=== PATIENT | male | born 1945 | race Hispanic/Latino ===

== ENCOUNTER 2025-03-27 08:08 | Inpatient (IN) | payer MEDICARE ==
[~2025-03-27] VITALS: Ht 165.1 cm; Wt 46.7 kg
--- NOTE | 2025-03-27 08:17 | NUR ---
GIOVANNI PATRICIA [facility] [phone]
[2025-03-27 08:24] LABS: BASOPHILS # (AUTO) 0.05 K/uL (0.00-0.20); BASOPHILS % (AUTO) 0.7 % (0.0-5.0); EOSINOPHILS # (AUTO) 0.02 K/uL (0.00-0.70); EOSINOPHILS % (AUTO) 0.3 % (0.0-8.0); HEMATOCRIT 33.5 % (42-54); IMMATURE GRANULOCYTE ABSOLUTE 0.04 K/uL (0-1); LYMPHOCYTES % (AUTO) 13.4 % (21.0-51.0); MEAN CORPUSCULAR HEMOGLOBIN 28.8 pg (27.0-33.0); MEAN CORPUSCULAR HGB CONC 31.9 g/dL (32.0-36.0); MEAN CORPUSCULAR VOLUME 90.3 fL (79-99); MONOCYTES # (AUTO) 0.6 K/uL (0.1-1.0); MONOCYTES % (AUTO) 8.1 % (3.0-13.0); NEUTROPHILS # (AUTO) 5.9 K/uL (1.8-7.7); PLATELET COUNT (AUTO) 342 K/uL (130-400); RED BLOOD CELL COUNT(AUTO) 3.71 MIL/uL (4.50-6.20); RED CELL DISTRIBUTION WIDTH 15.7 % (11.0-15.5); WHITE BLOOD COUNT (AUTO) 7.7 K/uL (4.8-10.8)
[2025-03-27 08:46] LABS: MAGNESIUM 1.6 mg/dL (1.80-2.40)
[2025-03-27 08:57] LABS: B-TYPE NATRIURETIC PEPTIDE 343 pg/mL (0-100)
--- NOTE | 2025-03-27 08:57 | HMCIMG ---
Exam Type: PELVIS 1-2VWS Clinical Information: fall Comparison: None Findings: There is osteopenia. The examination is otherwise unremarkable. No fractures or dislocations are seen. No radiopaque foreign bodies are noted. Soft tissues are preserved. IMPRESSION: Osteopenia. No acute pathology.
--- NOTE | 2025-03-27 08:57 | HMCIMG ---
Exam Type: CT HEAD/BRAIN W/O CONTRAST Clinical Information: fall Comparison: None CT Dose Index (CTDI): 57.33 mGy Dose Length Product (DLP): 956.79 total mGy-cm Findings: The examination shows atrophy. There is low attenuation throughout the periventricular white matter locations, consistent with chronic small vessel ischemic changes. No acute intra- or extra-axial fluid collections are seen. There is no evidence of acute or chronic hemorrhage. There is no mass effect or shift of midline structures. There are no areas to suggest acute infarct. The skull windows show no significant abnormalities. IMPRESSION: 1. ATROPHY AND CHRONIC SMALL VESSEL ISCHEMIC CHANGES. This study was performed using dose reduction techniques to include automated exposure control and/or adjustment of the mA and/or kV according to patient size.
--- NOTE | 2025-03-27 08:57 | HMCIMG ---
Exam Type: CT cervical spine without contrast Clinical Information: fall Comparison: None Technique: Spiral axial images were performed from the base of the skull down to the thoracic vertebral bodies. Both sagittal and coronal reconstructions were performed. CT Dose Index (CTDI): 12.85 mGy Dose Length Product (DLP): 282.6 total Findings: There is normal alignment of the vertebral bodies. There are no fractures. No facet hypertrophy. The prevertebral soft tissues are normal. IMPRESSION: NORMAL CERVICAL SPINE CT. This study was performed using dose reduction techniques to include automated exposure control and/or adjustment of the mA and/or kV according to patient size.
[2025-03-27 08:58] LABS: POTASSIUM 2.9 mmol/L (3.5-5.1)
--- NOTE | 2025-03-27 08:59 | HMCIMG ---
Exam Type: CHEST 1VW Clinical Information: fall Comparison: None Findings: The lungs are clear of infiltrates. The heart is normal in size. The bony and soft tissue structures of the chest are unremarkable. Impression: Clear lungs.
--- NOTE | 2025-03-27 09:00 | NUR ---
patiemt noted with feces on his hands and feet, patient was cleaned up by staff. also noted with multiple skin tears to bilateral arms and right scapula, which were cleaned and dressed by nurse.
--- NOTE | 2025-03-27 09:43 | ERN ---
General Chief Complaint: Mechanical Fall Stated Complaint: FALL Time Seen by MD: 08:11 History of Present Illness Initial Comments 79M, hx Dm, HTN, dementia, brought in by EMS for weakness and found down. Patient lives in an [place] [place] [facility]" per EMS. He lives on his own but people check on him daily. This morning he was found down on the ground with an abrasion to his L elbow. The patient reports feeling weak, but does not know what happened. Patient denies pain. Stable VS. Patient is not a reliable historian. He is alert to person only. No obvious focal deficits. Patient does appear unkempt, he has stool and feces on his clothes. Past Medical History Past Medical History: Dementia, Diabetes-Type II, High Cholesterol, Hyper tension, Stroke Past Surgical History: Other, Unknown ROS Dictation CONSTITUTIONAL: Generalized weakness and fatigue HEAD/FACE: No signs of trauma. EENT: No eye pain, no blurred vision, no tearing, no double vision, no ear pain, no ear discharge, no nose pain, no nasal congestion, no throat pain, no throat swelling, no mouth pain. RESPIRATORY: No cough, no orthopnea, no SOB, no stridor, no wheezing. CARDIOVASCULAR: No chest pain, no edema, no palpitations, no syncope. GASTROINTESTINAL/ABDOMINAL: No abdominal pain, no constipation, no diarrhea, no nausea, no vomiting. GENITOURINARY: No abnormal discharge, no dysuria, no frequent urination, no hematuria. No complaints of pain in the genitals. MUSCULOSKELETAL: No back pain, no gout, no joint pain, no joint swelling, no muscle pain, no muscle stiffness, no neck pain. INTEGUMENTARY: No change in color, no change in hair/nails, no dryness, no lesion, no lumps, no rash. NEUROLOGICAL/PSYCH: No anxiety, not depressed, no emotional problem, no headache, no numbness, no pre-existing deficit, no history of seizures, no tremors, no weakness. HEMATOLOGIC/LYMPHATIC: Not anemic, no history of blood clots, no apparent bleeding, no bruising, glands not swollen. All Systems Negative, Except as Noted. Physical Exam Physical Exam Dictation VITAL SIGNS: Reviewed. GENERAL APPEARANCE: Alert, oriented to person only, disheveled HEAD AND FACE: Non-traumatic. EYES: PERRL, pink conjunctivas, eyelid no trauma, anterior chamber clear. EARS: Pinnas intact and no signs of trauma or erythema. Ear canals clear and no discharge. TMs no erythema. NOSE: No discharge, no bleeding. OROPHARYNX: Mouth normal, teeth no caries, tongue pink. Pharynx clear, no erythema. Tonsils no exudates, no abscesses noted. Mucous membrane moist. NECK: Supple, non-tender, no thyromegaly, no masses, no JVD, no bruits. BREAST: Deferred. CHEST: No tenderness, no crepitus, no paradoxical movement, no retractions. LUNGS: Clear, well-ventilated, symmetric, no rales, no wheezing, no rhonchi, no stridor, good breath sounds bilaterally. HEART: Regular rate, regular rhythm, no murmur, no gallops. VASCULAR: No peripheral edema. ABDOMEN: Soft, positive bowel sounds, nondistended, no guarding, nontender, no rebound, no masses no hepatomegaly, no splenomegaly, no Santiago's sign, no hernias. RECTAL: Deferred. GENITAL: Deferred. NEUROLOGICAL: Normal speech, gross motor function intact, gross sensory function intact. MUSCULOSKELETAL: Neck nontender, full range of motion, back nontender, full range of motion. EXTREMITIES: Nontender, full range of motion. SKIN: Color pink, dry, no turgor, no rash, no lacerations, no abrasions, no contusions. LYMPHATICS: Deferred. Results Laboratory and Microbiology Lab and Micro Result Laboratory Tests Test 03/27/25 08:16 White Blood Count 7.7 K/uL (4.8-10.8) Red Blood Count 3.71 MIL/uL (4.50-6.20) L Hemoglobin 10.7 g/dL (14.0-18.0) L Hematocrit 33.5 % (42-54) L Mean Corpuscular Volume 90.3 fL (79-99) Mean Corpuscular Hemoglobin 28.8 pg (27.0-33.0) Mean Corpuscular Hemoglobin Concent 31.9 g/dL (32.0-36.0) L Red Cell Distribution Width 15.7 % (11.0-15.5) H Platelet Count 342 K/uL (130-400) Mean Platelet Volume 9.2 fL (7.5-10.5) Immature Granulocyte % (Auto) 0.5 % (0-1) Neutrophils (%) (Auto) 77.0 % (40.0-77.0) Lymphocytes (%) (Auto) 13.4 % (21.0-51.0) L Monocytes (%) (Auto) 8.1 % (3.0-13.0) Eosinophils (%) (Auto) 0.3 % (0.0-8.0) Basophils (%) (Auto) 0.7 % (0.0-5.0) Neutrophils # (Auto) 5.9 K/uL (1.8-7.7) Lymphocytes # (Auto) 1.0 K/uL (1.0-4.8) Monocytes # (Auto) 0.6 K/uL (0.1-1.0) Eosinophils # (Auto) 0.02 K/uL (0.00-0.70) Basophils # (Auto) 0.05 K/uL (0.00-0.20) Absolute Immature Granulocyte (auto 0.04 K/uL (0-1) Nucleated Red Blood Cells 0.0 % (0.0-0.19) Sodium Level 140 mmol/L (136-145) Potassium Level 2.9 mmol/L (3.5-5.1) *L Chloride Level 103 mmol/L (101-111) Carbon Dioxide Level 24 mmol/L (21-32) Blood Urea Nitrogen 29 mg/dL (7-18) H Creatinine 1.0 mg/dL (0.5-1.3) Glomerular Filtration Rate Calc 78 mL/min (>90) Random Glucose 87 mg/dL (70-105) Total Calcium 8.8 mg/dL (8.5-10.1) Magnesium Level 1.60 mg/dL (1.80-2.40) L Total Creatine Kinase 201 U/L (21-232) Troponin I High Sensitivity 17.4 ng/L (4-75) B-Type Natriuretic Peptide 343 pg/mL (0-100) H MDM CC: generalized weakness, found down. Historian: EMS provided much of the history. Patient is an unreliable historian. Due to dementia Limitations by social determinants of health none Comorbidities: Advanced age, dementia diabetes hypertension Differential diagnosis: Fall, injury, head injury metabolic abnormality, infection dehydration Vital signs: Mild hypertension 162/83 otherwise vital signs stable. Labs (independently interpreted by me): normocytic anemia, no leukocytosis, potassium 2.9, elevated BUN:Cr ratio, magnesium 1.6, troponin normal, CK normal. EKG (independently interpreted by me): NSR, RBBB morphology, rate 67, early RWP, no STEMI. CXR (independently interpreted by me): no cardiomegally, pleural effusion Pelvis XR (independently interpreted by me): no fractures CT head w/o contrast (independently interpreted by me): no acute brain bleed or injuries, chronic changes CT cervical spine w/o contrast (independently interpretd by me): no acute fractures. Symptoms most consistent with generalized weakness, dehydration. Electrolyte changes. Treatment in ED: 1L LR, potassium and magnesium replacement Plan: admit for hydration, electrolyte correction. Consultation: hospitalist for admission ED Course Orders Procedure Category Date Status Time Cardiac Panel LAB 03/27/25 Complete 08:12 Cbc With Differential LAB 03/27/25 Complete 08:12 Basic Metabolic Panel LAB 03/27/25 Complete 08:12 B-Type Natriuretic LAB 03/27/25 Complete Peptide 08:12 Magnesium LAB 03/27/25 Complete 08:12 Urinalysis Profile LAB 03/27/25 Logged 08:12 Lactated Ringers PHA 03/27/25 Pending 1000ml (Lactated 08:30 Chest 1vw RAD 03/27/25 Resulted 08:12 Pelvis 1-2vws RAD 03/27/25 Resulted 08:12 Ct Head/Brain W/O CT 03/27/25 Resulted Contrast 08:12 Ct Cervical Spine W/O CT 03/27/25 Resulted Contrast 08:12 12 Lead Ekg Tracing- EKG 03/27/25 Logged Technical 09:33 Magnesium 2gm Premix PHA 03/27/25 Logged 50ml (Magnesium 2gm 10:00 Initiate Po [place] 03/27/25 In Process Hypokalemia Protoc 09:37 Potassium Chloride PHA 03/27/25 Logged 20meq/100ml ([place] 10:00 Potassium Chl 10% PHA 03/27/25 Logged Elixir 20meq (Kcl 10% 10:00 Potassium Chloride PHA 03/27/25 Logged 20meq Er (K-Dur/Klor- 10:00 Notify Physician If CPOE 03/27/25 Transmitted There Is 09:37 Notify Md On The Next CPOE 03/27/25 Transmitted 09:37 Notify Md On The CPOE 03/27/25 Transmitted Next(Cont.) 09:37 Current Medications Medications (Trade) Dose Ordered Sig/Michelle Route PRN Reason Start Time Stop Time Status Last Admin Dose Admin Lactated Ringer's 1,000 ml @ 0 mls/hr ONCE ONCE IV 03/27/25 08:30 03/27/25 08:31 UNV Magnesium Sulfate 50 ml @ 0 mls/hr PROTOCOL PRN IV OTHER [SEE ORDER COMMENTS] 03/27/25 10:00 04/26/25 09:59 UNV Potassium Chloride 100 ml @ 100 mls/hr AD PRN IV POTASSIUM PROTOCOL 03/27/25 10:00 04/26/25 09:59 UNV Potassium Chloride (K-Dur/Klor-Con 20meq) 20 meq AD PRN PO POTASSIUM PROTOCOL 03/27/25 10:00 04/26/25 09:59 UNV Potassium Chloride (KCl 10% Elixir 20meq/15ml) 20 meq AD PRN PO POTASSIUM PROTOCOL 03/27/25 10:00 04/26/25 09:59 UNV Vital Signs Date Time Temp Pulse Resp B/P (MAP) Pulse Ox O2 Delivery O2 Flow Rate FiO2 03/27/25 08:26 97.9 75 18 152/83 99 Room Air* 0 21 03/27/25 08:12 98.4 83 14 152/83 97 Room Air 0 DX & DISP Disposition: Inpatient (Hospitalist group) Departure Impression: Primary Impression: Dehydration Additional Impressions: Fatigue, Hypokalemia, Hypomagnesemia, Fall at home Condition: Stable Referrals: SELF,REFERRAL (PCP) KELLEY FAJARDO DO Mar 27, 2025 09:43
--- NOTE | 2025-03-27 10:00 | NUR ---
spoke to patient sister, states she found paitent on floor this am when she took him breakfast, which she states she does every morning. states patient is normally ambulatory without assistance, but today he was unsteady when she assisted him off the floor.
--- NOTE | 2025-03-27 10:31 | EKG ---
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
[2025-03-27] MEDS: PoTASSium chl 10% ELIXIR 20MEQ 20 MEQ/15 ML UDCUP PO PRN (10:55)
[2025-03-27] MEDS: LACTATED RINGERS 1000ML 1,000 ML IV ONE (10:56)
[2025-03-27] MEDS ORDERED: MAGNESIUM 2GM PREMIX 50ML 50 ML IV PRN ×2 (11:00)
[2025-03-27] MEDS ORDERED: ketOROlac 15MG/ML VIAL (15MG/ML) IV PRN (11:00)
[2025-03-27] MEDS ORDERED: PoTASSium chloRIDE 20MEQ/100ML 100 ML IV PRN ×2 (11:00)
[2025-03-27] MEDS ORDERED: LACTULOSE 20 GM/30 ML UDCUP PO PRN (11:00)
[2025-03-27] MEDS ORDERED: GLUCAGON 1MG KIT 1 MG ML IM PRN (11:00)
[2025-03-27] MEDS ORDERED: PoTASSium chloRIDE 20MEQ ER 20 MEQ ERTAB PO PRN ×2 (11:00)
[2025-03-27] MEDS ORDERED: DiphenhydrAMINE HCL 50 MG/ML VIAL IV PRN (11:00)
[2025-03-27] MEDS ORDERED: NITROGLYCERIN 0.4 MG SL TAB SL PRN (11:00)
[2025-03-27] MEDS ORDERED: morPHINE 2 MG SYG IVP PRN (11:00)
[2025-03-27] MEDS ORDERED: guaiFENesin-DM 200/20MG 10ML PO PRN (11:00)
[2025-03-27] MEDS ORDERED: FAMOTIDINE 20MG VIAL IV PRN (11:00)
[2025-03-27] MEDS ORDERED: acetaMINOPHEN 325 MG TAB PO PRN ×3 (11:00)
[2025-03-27] MEDS ORDERED: MAG/ALUM/SIMETH 30 ML UDCUP PO PRN (11:00)
[2025-03-27] MEDS ORDERED: PoTASSium chl 10% ELIXIR 20MEQ 20 MEQ/15 ML UDCUP PO PRN (11:00)
[2025-03-27] MEDS: MAGNESIUM 2GM PREMIX 50ML 50 ML IV SCH (11:11)
[2025-03-27 11:15] LABS: APPEARANCE,URINE CLEAR (CLEAR); BILIRUBIN,URINE NEGATIVE (NEGATIVE); COLOR,URINE LIGHT-YELLOW (YELLOW); GLUCOSE, URINE (UA) NEGATIVE (NEGATIVE); KETONES,URINE NEGATIVE (NEGATIVE); LEUKOCYTE ESTERASE ,URINE NEGATIVE Leu/uL (NEGATIVE); MUCUS,URINE RARE LPF (None Seen); NITRATE,URINE NEGATIVE (NEGATIVE); OCCULT BLOOD,URINE NEGATIVE (NEGATIVE); PROTEIN,URINE NEGATIVE (NEGATIVE); RBC,URINE 0-1 /HPF (0-1); UROBILINOGEN,URINE 0.2 mg/dL (0.2-1.0); WBC,URINE 0-1 /HPF (0-1)
--- NOTE | 2025-03-27 11:25 | HP ---
[facility] Date of Service: Mar 27, 2025 Time of Service: 10:54 PCP: self refferal Admitting: Dr Marcum, Allergies: No Allergy Information Available, No Known Drug Allergies HISTORY OF PRESENT ILLNESS: [ Patient is 79 years old male with a past medical history of diabetes, hypertension, dementia, hyperlipidemia, stroke, anxiety, multiple skin tears, who came to emergency department for generalized body weakness. Since patient has significant dementia he was unable to give me any history of present illness so as per EMS "Patient lives in an "assisted [facility]". He lives on his own but people check on him daily. This morning he was found down on the ground with an abrasion to his L elbow. The patient reports feeling weak, but does not know what happened. Patient denies pain. Patient is not a reliable historian. He is alert to person only. No obvious focal deficits. Patient does appear unkempt, he has stool and feces on his clothes. Blind most recent vital signs temperature 97.5 pulse 86 respiration 20 blood pressure 154/86 patient is on room air satting 99%. Sodium 140 potassium 2.9 CO2 24 BUN 29 creatinine 1.0 GFR 78 magnesium 1.6 CK 201 troponin negative BNP 343 WBC 7.7 hemoglobin 10.7 hematocrit 33.[address] platelets [address] negative. Chest x-ray negative. Head CT negative. Pelvic x- ray showed osteopenia. 2D echo is pending. As per RN who was able to talk to the patient's daughter she would like to try case management to send patient to shelter. Case management was consulted. PT ordered Patient will be admitted under hospitalist care for further evaluation/recommendation REVIEW OF SYSTEMS CONSTITUTIONAL: Denies fevers, chills, or night sweats. No unintentional weight loss reported. NEUROLOGICAL: Denies headache, amaurosis fugax, motor weakness, sensory deficit, vertigo/spinning sensation, gait abnormalities, or tremors. ENT: No hearing loss, otalgia, otorrhea, rhinitis, rhinorrhea, hoarseness, or sore throat. CARDIOVASCULAR: Denies any exertional angina, dyspnea on exertion, orthopnea, paroxysmal nocturnal dyspnea, palpitations, life-threatening arrhythmias, claudication. PULMONARY: Denies any shortness of breath, cough, phlegm/sputum, hemoptysis, pleuritic chest pain. SLEEP: Denies morning headaches, daytime somnolence or napping. Denies difficulty falling asleep, staying asleep, waking from sleep. Denies knowledge of snoring. GASTROINTESTINAL: Denies any type of dysphagia to either liquids or solids. Denies nausea, vomiting, pyrosis, early satiety, abdominal pain, diarrhea, constipation, or changes in stool consistency or caliber. Denies coffee-ground emesis, hematemesis, hematochezia, or melanotic stools. GENITOURINARY: Denies frequency, urgency, nocturia, hematuria or incontinence (Storage/Irritative symptoms.) Low urinary stream, straining to void, urinary intermittency or hesitancy, splitting of the voiding stream, terminal dribbling. ENDOCRINOLOGIC: Denies polyuria, polydipsia, polyphagia or heat/cold intolerances. HEMATOLOGIC: Denies thrombophilia/previous clots, or coagulopathy/bleeding disorders. ONCOLOGIC: Denies personal history of malignancy. DERMATOLOGIC: Denies rashes or pruritus. Multiple skin tears PSYCHIATRIC: Denies any suicidal or homicidal ideation. Denies hallucinations. PAST MEDICAL HISTORY: [ Diabetes, dementia, hypertension, hyperlipidemia, stroke, anxiety] PAST SURGICAL HISTORY: [ Unknown] PAST SOCIAL HISTORY: [ Unknown ] FAMILY HISTORY: [ Patient lives alone at longterm. Patient independent as per daughter ] Coded Allergies: No Known Drug Allergies (Unverified Allergy, Unknown, 03/27/25) PHYSICAL EXAM GENERAL APPEARANCE: The patient is awake, alert, and oriented, in no acute cardiopulmonary distress. NEUROLOGICAL: Cranial nerves II-XII grossly intact. Motor is 5/5 in bilateral upper and lower extremities proximal to distal. No sensory deficits. HEENT: Face is symmetric. Pupils are equal and reactive. Extraocular movements are intact. NECK: Supple. No JVD. No thyromegaly. No submental, submandibular, pre- /postauricular, occipital or supraclavicular lymphadenopathy. CHEST: Normal chest expansion. No Telemetry. LUNGS: Absence of any rales, rhonchi or any wheezing. CARDIOVASCULAR: Regular. S1 and S2 normal. No appreciable rubs, murmurs or gallops. ABDOMEN: Soft, nontender, and nondistended. There is no rebound, voluntary guarding, or rigidity. : Deferred. No [place]. EXTREMITIES: Non-edematous and not cyanotic. No clubbing. Good capillary refill. SKIN: Multiple skin tears Vital Sign (Last 24 Hours) 03/27/25 03/27/25 08:26 09:25 Temp 97.5 Pulse 86 Resp 20 B/P (MAP) 154/86 Pulse Ox 99 O2 Delivery Room Air* O2 Flow Rate 0 FiO2 21 LABS: Laboratory: Test 03/27/25 08:16 Range/Units White Blood Count 7.7 4.8-10.8 K/uL Red Blood Count 3.71 L 4.50-6.20 MIL/uL Hemoglobin 10.7 L 14.0-18.0 g/dL Hematocrit 33.5 L 42-54 % Mean Corpuscular Volume 90.3 79-99 fL Mean Corpuscular Hemoglobin 28.8 27.0-33.0 pg Mean Corpuscular Hemoglobin Concent 31.9 L 32.0-36.0 g/dL Red Cell Distribution Width 15.7 H 11.0-15.5 % Platelet Count 342 130-400 K/uL Mean Platelet Volume 9.2 7.5-10.5 fL Immature Granulocyte % (Auto) 0.5 0-1 % Neutrophils (%) (Auto) 77.0 40.0-77.0 % Lymphocytes (%) (Auto) 13.4 L 21.0-51.0 % Monocytes (%) (Auto) 8.1 3.0-13.0 % Eosinophils (%) (Auto) 0.3 0.0-8.0 % Basophils (%) (Auto) 0.7 0.0-5.0 % Neutrophils # (Auto) 5.9 1.8-7.7 K/uL Lymphocytes # (Auto) 1.0 1.0-4.8 K/uL Monocytes # (Auto) 0.6 0.1-1.0 K/uL Eosinophils # (Auto) 0.02 0.00-0.70 K/uL Basophils # (Auto) 0.05 0.00-0.20 K/uL Absolute Immature Granulocyte (auto 0.04 0-1 K/uL Nucleated Red Blood Cells 0.0 0.0-0.19 % Sodium Level 140 136-145 mmol/L Potassium Level 2.9 *L 3.5-5.1 mmol/L Chloride Level 103 101-111 mmol/L Carbon Dioxide Level 24 21-32 mmol/L Blood Urea Nitrogen 29 H 7-18 mg/dL Creatinine 1.0 0.5-1.3 mg/dL Glomerular Filtration Rate Calc 78 >90 mL/min Random Glucose 87 70-105 mg/dL Total Calcium 8.8 8.5-10.1 mg/dL Magnesium Level 1.60 L 1.80-2.40 mg/dL Total Creatine Kinase 201 21-232 U/L Troponin I High Sensitivity 17.4 4-75 ng/L B-Type Natriuretic Peptide 343 H 0-100 pg/mL Current Medications Medications (Trade) Dose Ordered Sig/Michelle Route PRN Reason Start Time Stop Time Status Last Admin Dose Admin Dextrose (D50w) 50 ml AD PRN IV HYPOGLYCEMIA PROTOCOL 03/27/25 11:00 04/26/25 10:59 Glucagon (Glucagon 1mg Kit) 1 mg AD PRN IM HYPOGLYCEMIA PROTOCOL 03/27/25 11:00 04/26/25 10:59 Insulin Human Regular (humuLIN R 100 UNIT/ML 3ML) INSULIN SLIDING SCAL... ACHS SQ 03/27/25 11:30 04/26/25 11:29 Magnesium Sulfate 50 ml @ 0 mls/hr PROTOCOL PRN IV OTHER [SEE ORDER COMMENTS] 03/27/25 11:00 03/27/25 10:48 DC Magnesium Sulfate 50 ml @ 0 mls/hr PROTOCOL PRN IV OTHER [SEE ORDER COMMENTS] 03/27/25 11:00 04/26/25 10:59 Potassium Chloride 100 ml @ 100 mls/hr AD PRN IV POTASSIUM PROTOCOL 03/27/25 11:00 03/27/25 10:48 DC Potassium Chloride 100 ml @ 100 mls/hr AD PRN IV POTASSIUM PROTOCOL 03/27/25 11:00 04/26/25 10:59 Potassium Chloride (K-Dur/Klor-Con 20meq) 20 meq AD PRN PO POTASSIUM PROTOCOL 03/27/25 11:00 03/27/25 10:48 DC Potassium Chloride (K-Dur/Klor-Con 20meq) 20 meq AD PRN PO POTASSIUM PROTOCOL 03/27/25 11:00 04/26/25 10:59 Potassium Chloride (KCl 10% Elixir 20meq/15ml) 20 meq AD PRN PO POTASSIUM PROTOCOL 03/27/25 11:00 03/27/25 10:48 DC Potassium Chloride (KCl 10% Elixir 20meq/15ml) 20 meq AD PRN PO POTASSIUM PROTOCOL 03/27/25 11:00 04/26/25 10:59 DIAGNOSTICS / RADIOLOGY: [ ] ASSESSMENT: [ S/p fall POA Acute dehydration POA Generalized body weakness POA Electrolyte imbalance hypokalemia hypomagnesemia POA Multifactorial anemia POA Osteopenia per pelvis x-ray 03/27/2025 Acute congestive heart failure BNP 343 POA Uncontrolled hypertension POA Dementia POA Hyperlipidemia POA Uncontrolled diabetes mellitus type 2 with hypoglycemia POA Anxiety POA Multiple skin tears POA History of stroke] PLAN: [ Admit to: Medical-surgical floor with tele Consults: None Antibiotics: None Tests: 2D echo NEURO: CT head brain negative Minimize central acting medications as possible. Fall Precautions. Well lighted room through the day and minimize interruptions through the night to prevent acute delirium. PULMONARY: Chest x-ray negative Supplemental 02 as needed BiPAP as necessary, for respiratory distress Titrate Fio2 to keep Spo2 > or = 90% DuoNebs and CPT as needed IS hourly while awake for pulmonary hygiene Out of bed to chair as tolerated VAP Bundle Maintain aspiration precautions at all times CARDIOVASCULAR: 2D echo pending Follow hemodynamics. Vital signs per facility protocol GI & NUTRITION: Continue nutritional support Aspirations precautions Prokinetic agents and laxatives as needed KIDNEYS & ELECTROLYTES: Strict monitoring of intake and output Daily weights Avoid nephrotoxic agents Monitor electrolytes and replace as needed Goal urine output of 30mL/hr or 0.5mL/kg/hr Medications to be dosed according to renal function. Avoid contrast if possible ENDOCRINE: Maintain blood glucose between 100-180 at all times. Insulin sliding scale for blood glucose management Hypoglycemia and hyperglycemia protocol in place INFECTIOUS DISEASE: Trend temperature, WBC and procalcitonin level Follow cultures, deescalate antibiotics as soon as possible. Panculture if new onset fever HEMATOLOGY & COAGULATION: Monitor H&H. Keep Hgb > 7 Transfuse 1 unit of PRBC for Hgb < 7 Transfuse 1 pack of platelets of platelets < 20, 000 Watch for any signs and symptoms of bleeding SKIN: Pelvis x-ray showed osteopenia Cervical spine CT negative Pressure ulcer prevention per facility protocol Specialty mattress as needed Treatment plan discussed with patient and family at the bedside Medications to be reconciled once obtained by patient and/or family and available to be reconciled in computer p.r.n. medication for pain nausea and vomiting Questions were answered We will continue to monitor the patient closely Systems Programmer Analyst for disposition Rehab: PT/OT GI: PPI DVT: SCD's Code Status: Full Resuscitation Disposition: TBD Prognosis: Guarded ] ADVANCED CARE PLANNING 1. Which of the following were discussed? Hospice Care - Yes / No Therapeutic options - Yes / No Advance Directives - Yes / No Other discussions - 2. Discussed with who? Patient 3. Voluntary nature of this service was explained to the patient? Yes / No 4. Amount of time spent - ___ more than 35 minutes ____ 5. Reviewed by Physician? (if this service was performed by NPP) Yes / No ATTESTATION BY PHYSICIAN I have seen and examined the patient. I reviewed the documentation, medical decision making, and treatment plan as noted by the mid-level provider above. I agree with the findings and plan of care. DILCIA Encarnacion MD SILK WINDING MACHINE OPERATOR Mar 27, 2025 11:25
[2025-03-27] MEDS: INSULIN humuLIN R 100 UNIT/ML 3ML SQ SCH (11:30)
[2025-03-27 11:35] VITALS: O2SAT 98
--- NOTE | 2025-03-27 11:35 | NUR ---
PT ARRIVED TO UNIT. NO FAMILY AT BEDSIDE. PT HAS HISTORY OF DEMENTIA, HX OF FALLS. PT UNABLE TO ANSWER QUESTIONS ORIENTED TO SELF. NO BELONGINGS BROUGHT TO HOSPITAL. PT HAS MULTIPLE SKIN TEARS ON UPPER EXTREMITIES. AND SHOULDER BLADES. PT HAS HEMATOMA TO FOREHEAD. DENIES ANY PAIN AT THE MOMENT. PT TRIES TO GET OUT OF BED UNASSISTED. UNABLE TO COMPREHEND USE CALL LIGHT. BED POSITION TO LOWEST POSITION. CALL LIGHT WITH IN REACH. DOOR REMAINS OPEN.
[2025-03-27 11:40] VITALS: BP 157/90; PULSE 67; RESP 16; TEMP 97.5
[2025-03-27 11:59] LABS: COVID19 (SARS ANTIGEN RAPID) PRESUMPTIVE NEGATIVE (NEGATIVE); INFLUENZA TYPE A Negative For Type A (NEGATIVE); INFLUENZA TYPE B Negative For Type B (NEGATIVE)
[2025-03-27] MEDS: PoTASSium chloRIDE 20MEQ ER 20 MEQ ERTAB PO ONE ×3 (13:05→20:45)
[2025-03-27] MEDS: 0.9%NACL 1000ML 1,000 ML IV SCH (13:08)
[2025-03-27 16:00] VITALS: BP 152/88; PULSE 65; RESP 18; TEMP 97.6
[2025-03-27 16:45] VITALS: BP 134/82; PULSE 78; RESP 18; TEMP 97.6
[2025-03-27 20:05] VITALS: BP 152/88; PULSE 68; RESP 20; TEMP 98
[2025-03-27] MEDS: FAMOTIDINE 20MG VIAL IV SCH (20:45)
[2025-03-27] MEDS: HEParin 5,000 UNIT VIAL SQ SCH (20:46)
[2025-03-28] VITALS (9 sets, daily range): BP systolic 125–169; BP diastolic 65–89; PULSE 52–71; RESP 16–20; TEMP 97.9–98.2; O2SAT 100
[2025-03-28 05:52] LABS: BASOPHILS # (AUTO) 0.04 K/uL (0.00-0.20); BASOPHILS % (AUTO) 0.7 % (0.0-5.0); EOSINOPHILS # (AUTO) 0.07 K/uL (0.00-0.70); EOSINOPHILS % (AUTO) 1.2 % (0.0-8.0); HEMATOCRIT 35.1 % (42-54); IMMATURE GRANULOCYTE ABSOLUTE 0.02 K/uL (0-1); LYMPHOCYTES % (AUTO) 16.7 % (21.0-51.0); MEAN CORPUSCULAR HEMOGLOBIN 28.9 pg (27.0-33.0); MEAN CORPUSCULAR HGB CONC 31.6 g/dL (32.0-36.0); MEAN CORPUSCULAR VOLUME 91.4 fL (79-99); MONOCYTES # (AUTO) 0.5 K/uL (0.1-1.0); MONOCYTES % (AUTO) 8.2 % (3.0-13.0); NEUTROPHILS # (AUTO) 4.2 K/uL (1.8-7.7); NEUTROPHILS % (AUTO) 72.9 % (40.0-77.0); PLATELET COUNT (AUTO) 332 K/uL (130-400); RED BLOOD CELL COUNT(AUTO) 3.84 MIL/uL (4.50-6.20); RED CELL DISTRIBUTION WIDTH 15.7 % (11.0-15.5); WHITE BLOOD COUNT (AUTO) 5.8 K/uL (4.8-10.8)
[2025-03-28 06:09] LABS: INR 1.05 (0.85-1.15); PROTHROMBIN TIME 11.1 SEC (9.6-11.6)
[2025-03-28 06:11] LABS: ALANINE AMINOTRANSFERASE 42 U/L (12-78); ALBUMIN 2.8 g/dL (3.5-5.0); AMMONIA < 10 umol/L (11-32); AMYLASE 26 U/L (25-115); ASPARTATE AMINOTRANSFERASE 54 U/L (10-37); BILIRUBIN,DIRECT 0.1 mg/dL (0.0-0.3); BILIRUBIN,TOTAL 0.5 mg/dL (0.2-1.0); CARBON DIOXIDE 29 mmol/L (21-32); CHLORIDE 104 mmol/L (101-111); CREATINE KINASE, TOTAL 177 U/L (21-232); CREATININE 0.7 mg/dL (0.5-1.3); GLOMERULAR FILTR. RATE CALC 95 mL/min (>90); GLUCOSE,RANDOM 89 mg/dL (70-105); PARTIAL THROMBOPLASTIN TIME 29.5 SEC (26.3-35.5); POTASSIUM 3.7 mmol/L (3.5-5.1); SODIUM SERUM 140 mmol/L (136-145); TOTAL PROTEIN, SERUM 6.2 g/dL (6.0-8.3); UREA NITROGEN, BLOOD 17 mg/dL (7-18)
[2025-03-28 06:13] LABS: HEMOGLOBIN A1C 5.4 % (4.0-6.0)
--- NOTE | 2025-03-28 07:31 | PN ---
[facility] PROGRESS NOTE Date of Service: Mar 28, 2025 Time of Service: 07:31 SUBJECTIVE: [79-year-old male admitted status post fall at home. Patient was seen and evaluated in room 320 with sitter for supervision. The patient was very sleepy during my rounds. He looks unkept. Patient unable to answer any questions due to hypersomnolent. Chart reviewed. We will await for blood cultures. Physical therapy to eval and treat and case management for placement. Labs reviewed. ] REVIEW OF SYSTEMS CONSTITUTIONAL: Denies fevers, chills, or night sweats. No unintentional weight loss reported. NEUROLOGICAL: Denies headache, amaurosis fugax, motor weakness, sensory deficit, vertigo/spinning sensation, gait abnormalities, or tremors. ENT: No hearing loss, otalgia, otorrhea, rhinitis, rhinorrhea, hoarseness, or sore throat. CARDIOVASCULAR: Denies any exertional angina, dyspnea on exertion, orthopnea, paroxysmal nocturnal dyspnea, palpitations, life-threatening arrhythmias, claudication. PULMONARY: Denies any shortness of breath, cough, phlegm/sputum, hemoptysis, pleuritic chest pain. SLEEP: Denies morning headaches, daytime somnolence or napping. Denies difficulty falling asleep, staying asleep, waking from sleep. Denies knowledge of snoring. GASTROINTESTINAL: Denies any type of dysphagia to either liquids or solids. Denies nausea, vomiting, pyrosis, early satiety, abdominal pain, diarrhea, constipation, or changes in stool consistency or caliber. Denies coffee-ground emesis, hematemesis, hematochezia, or melanotic stools. GENITOURINARY: Denies frequency, urgency, nocturia, hematuria or incontinence (Storage/Irritative symptoms.) Low urinary stream, straining to void, urinary intermittency or hesitancy, splitting of the voiding stream, terminal dribbling. ENDOCRINOLOGIC: Denies polyuria, polydipsia, polyphagia or heat/cold intolerances. HEMATOLOGIC: Denies thrombophilia/previous clots, or coagulopathy/bleeding disorders. ONCOLOGIC: Denies personal history of malignancy. DERMATOLOGIC: Denies rashes or pruritus. Multiple skin tears PSYCHIATRIC: Denies any suicidal or homicidal ideation. Denies hallucinations. PHYSICAL EXAM GENERAL APPEARANCE: The patient is awake, alert, and oriented, in no acute cardiopulmonary distress. NEUROLOGICAL: Cranial nerves II-XII grossly intact. Motor is 5/5 in bilateral upper and lower extremities proximal to distal. No sensory deficits. HEENT: Face is symmetric. Pupils are equal and reactive. Extraocular movements are intact. NECK: Supple. No JVD. No thyromegaly. No submental, submandibular, pre- /postauricular, occipital or supraclavicular lymphadenopathy. CHEST: Normal chest expansion. No Telemetry. LUNGS: Absence of any rales, rhonchi or any wheezing. CARDIOVASCULAR: Regular. S1 and S2 normal. No appreciable rubs, murmurs or gallops. ABDOMEN: Soft, nontender, and nondistended. There is no rebound, voluntary guarding, or rigidity. : Deferred. No [place]. EXTREMITIES: Non-edematous and not cyanotic. No clubbing. Good capillary refill. SKIN: Multiple skin tears Vital Signs (last 8hr) Date Time Temp Pulse Resp B/P (MAP) Pulse Ox O2 Delivery O2 Flow Rate FiO2 03/28/25 04:02 97.9 69 19 150/65 97 Room Air 03/28/25 00:01 98.1 71 18 147/89 96 Room Air LABS: Laboratory: Test 03/28/25 05:32 03/28/25 05:18 03/27/25 11:15 03/27/25 11:00 Range/Units White Blood Count 5.8 4.8-10.8 K/uL Red Blood Count 3.84 L 4.50-6.20 MIL/uL Hemoglobin 11.1 L 14.0-18.0 g/dL Hematocrit 35.1 L 42-54 % Mean Corpuscular Volume 91.4 79-99 fL Mean Corpuscular Hemoglobin 28.9 27.0-33.0 pg Mean Corpuscular Hemoglobin Concent 31.6 L 32.0-36.0 g/dL Red Cell Distribution Width 15.7 H 11.0-15.5 % Platelet Count 332 130-400 K/uL Mean Platelet Volume 9.2 7.5-10.5 fL Immature Granulocyte % (Auto) 0.3 0-1 % Neutrophils (%) (Auto) 72.9 40.0-77.0 % Lymphocytes (%) (Auto) 16.7 L 21.0-51.0 % Monocytes (%) (Auto) 8.2 3.0-13.0 % Eosinophils (%) (Auto) 1.2 0.0-8.0 % Basophils (%) (Auto) 0.7 0.0-5.0 % Neutrophils # (Auto) 4.2 1.8-7.7 K/uL Lymphocytes # (Auto) 1.0 1.0-4.8 K/uL Monocytes # (Auto) 0.5 0.1-1.0 K/uL Eosinophils # (Auto) 0.07 0.00-0.70 K/uL Basophils # (Auto) 0.04 0.00-0.20 K/uL Absolute Immature Granulocyte (auto 0.02 0-1 K/uL Nucleated Red Blood Cells 0.0 0.0-0.19 % Prothrombin Time 11.1 9.6-11.6 SEC Prothromb Time International Ratio 1.05 0.85-1.15 Activated Partial Thromboplast Time 29.5 26.3-35.5 SEC Sodium Level 140 136-145 mmol/L Potassium Level 3.7 3.5-5.1 mmol/L Chloride Level 104 101-111 mmol/L Carbon Dioxide Level 29 21-32 mmol/L Blood Urea Nitrogen 17 7-18 mg/dL Creatinine 0.7 0.5-1.3 mg/dL Glomerular Filtration Rate Calc 95 >90 mL/min Random Glucose 89 70-105 mg/dL Hemoglobin A1c 5.4 4.0-6.0 % Estimated Average Glucose (eAG) 108 70-126 mg/dL Lactic Acid Level 1.7 0.8-2.5 mmol/L Total Calcium 8.4 L 8.5-10.1 mg/dL Magnesium Level 1.50 L 1.80-2.40 mg/dL Total Bilirubin 0.5 0.2-1.0 mg/dL Direct Bilirubin 0.1 0.0-0.3 mg/dL Aspartate Amino Transf (AST/SGOT) 54 H 10-37 U/L Alanine Aminotransferase (ALT/SGPT) 42 12-78 U/L Alkaline Phosphatase 159 H 50-136 U/L Ammonia < 10 L 11-32 umol/L Total Creatine Kinase 177 21-232 U/L [id number] Natriuretic Peptide 2130 H 0-450 pg/mL Total Protein 6.2 6.0-8.3 g/dL Albumin 2.8 L 3.5-5.0 g/dL Amylase Level 26 25-115 U/L Lipase 26 16-77 U/L Procalcitonin < 0.05 L 0.05-0.5 ng/mL Whole Blood Glucose 88 70-110 MG/DL Influenza Type A Antigen Negative For Type A NEGATIVE Influenza Type B Antigen Negative For Type B NEGATIVE SARS-CoV-2 Antigen (Rapid) PRESUMPTIVE NEGATIVE NEGATIVE Urine Color LIGHT-YELLOW YELLOW Urine Appearance CLEAR CLEAR Urine pH 6.0 5.0-8.0 Urine Specific [place] 1.007 1.001-1.031 Urine Protein NEGATIVE NEGATIVE mg/dL Urine Glucose (UA) NEGATIVE NEGATIVE mg/dL Urine Ketones NEGATIVE NEGATIVE mg/dL Urine Occult Blood NEGATIVE NEGATIVE Urine Nitrate NEGATIVE NEGATIVE Urine Bilirubin NEGATIVE NEGATIVE mg/dL Urine Urobilinogen 0.2 0.2-1.0 mg/dL Urine Leukocyte Esterase NEGATIVE NEGATIVE Gary/uL Urine RBC 0-1 0-1 /HPF Urine WBC 0-1 0-1 /HPF Urine Bacteria None None Seen /HPF Test 03/27/25 08:16 Range/Units Troponin I High Sensitivity 17.4 4-75 ng/L B-Type Natriuretic Peptide 343 H 0-100 pg/mL Current Medications Medications (Trade) Dose Ordered Sig/Michelle Route PRN Reason Start Time Stop Time Status Last Admin Dose Admin Acetaminophen (TYLenol 325MG TAB) 650 mg Q4H PRN PO MILD PAIN (1-3) 03/27/25 11:00 03/27/25 10:58 DC Acetaminophen (TYLenol 325MG TAB) 650 mg Q6H PRN PO MILD PAIN (1-3) 03/27/25 11:00 04/26/25 10:59 Acetaminophen (TYLenol 325MG TAB) 650 mg Q6H PRN PO TEMPERATURE GREATER THAN 101.5 03/27/25 11:00 04/26/25 10:59 Al Hydroxide/Mg Hydroxide (MAALox PLUS 30ML) 30 ml Q6H PRN PO INDIGESTION 03/27/25 11:00 04/26/25 10:59 Dextrose (D50w) 50 ml AD PRN IV HYPOGLYCEMIA PROTOCOL 03/27/25 11:00 04/26/25 10:59 Diphenhydramine HCl (BENAdryl INJ) 25 mg Q6H PRN IV SEVERE ITCHING/RASH 03/27/25 11:00 04/26/25 10:59 Famotidine (Pepcid 20mg Vial) 20 mg BID IV 03/27/25 21:00 04/26/25 20:59 03/27/25 20:45 20 MG Famotidine (Pepcid 20mg Vial) 20 mg BID PRN IV NAUSEA/VOMITING 03/27/25 11:00 03/27/25 10:58 DC Glucagon (Glucagon 1mg Kit) 1 mg AD PRN IM HYPOGLYCEMIA PROTOCOL 03/27/25 11:00 04/26/25 10:59 Guaifenesin/ Dextromethorphan (RobiTUSSin DM 200/20MG 10ML) 10 ml Q4H PRN PO COUGH 03/27/25 11:00 04/26/25 10:59 Heparin Sodium (Porcine) (HEParin 5,000 UNIT VIAL) 5,000 unit BID SQ 03/27/25 21:00 04/26/25 20:59 03/27/25 20:46 5,000 UNIT Hydralazine HCl (APRESOLine 20MG INJ) 10 mg Q6H PRN IV For:SBP above 160;DBP above 90 03/27/25 11:00 04/26/25 10:59 Insulin Human Regular (humuLIN R 100 UNIT/ML 3ML) INSULIN SLIDING SCAL... ACHS SQ 03/27/25 11:30 04/26/25 11:29 Ketorolac Tromethamine (toRADol) 15 mg Q8H PRN IV MODERATE PAIN (4-6) 03/27/25 11:00 04/01/25 10:59 Lactulose (Constulose 20gm/ 30ml Udcup) 20 gm BID PRN PO CONSTIPATION 03/27/25 11:00 04/26/25 10:59 Magnesium Sulfate 50 ml @ 0 mls/hr PROTOCOL IV 03/27/25 11:00 04/26/25 10:59 03/27/25 11:11 50 MLS/HR Magnesium Sulfate 50 ml @ 0 mls/hr PROTOCOL PRN IV OTHER [SEE ORDER COMMENTS] 03/27/25 11:00 03/27/25 10:48 DC Magnesium Sulfate 50 ml @ 0 mls/hr PROTOCOL PRN IV OTHER [SEE ORDER COMMENTS] 03/27/25 11:00 04/26/25 10:59 Morphine Sulfate (morPHINE 2MG SYG) 1 mg Q4H PRN IVP SEVERE PAIN (7-10) 03/27/25 11:00 04/03/25 10:59 Nitroglycerin (Nitrostat) 0.4 mg PROTOCOL PRN SL CHEST PAIN 03/27/25 11:00 04/26/25 10:59 Ondansetron HCl (zoFRAN 4MG INJ) 4 mg Q6H PRN IV NAUSEA/VOMITING 03/27/25 11:00 04/26/25 10:59 Potassium Chloride 100 ml @ 100 mls/hr AD PRN IV POTASSIUM PROTOCOL 03/27/25 11:00 03/27/25 10:48 DC Potassium Chloride 100 ml @ 100 mls/hr AD PRN IV POTASSIUM PROTOCOL 03/27/25 11:00 04/26/25 10:59 Potassium Chloride (K-Dur/Klor-Con 20meq) 20 meq AD PRN PO POTASSIUM PROTOCOL 03/27/25 11:00 03/27/25 10:48 DC Potassium Chloride (K-Dur/Klor-Con 20meq) 20 meq AD PRN PO POTASSIUM PROTOCOL 03/27/25 11:00 04/26/25 10:59 Potassium Chloride (KCl 10% Elixir 20meq/15ml) 20 meq AD PRN PO POTASSIUM PROTOCOL 03/27/25 11:00 03/27/25 10:48 DC Potassium Chloride (KCl 10% Elixir 20meq/15ml) 20 meq AD PRN PO POTASSIUM PROTOCOL 03/27/25 11:00 04/26/25 10:59 03/27/25 10:55 20 MEQ Sodium Chloride 1,000 ml @ 100 mls/hr Q10H IV 03/27/25 11:00 04/26/25 10:59 03/28/25 06:37 100 MLS/HR Zolpidem Tartrate (AmbIEN) 5 mg HS PRN PO INSOMNIA 03/27/25 11:00 04/26/25 10:59 DIAGNOSTICS / RADIOLOGY: [ ] ASSESSMENT: [ S/p fall POA Acute dehydration POA Generalized body weakness POA Electrolyte imbalance hypokalemia hypomagnesemia POA Multifactorial anemia POA Osteopenia per pelvis x-ray 03/27/2025 Acute congestive heart failure BNP 343 POA Uncontrolled hypertension POA Dementia POA Hyperlipidemia POA Uncontrolled diabetes mellitus type 2 with hypoglycemia POA Anxiety POA Multiple skin tears POA History of stroke] PLAN: [ Admit to: Medical-surgical floor with tele Consults: None Antibiotics: None Tests: 2D echo, pending results NEURO: CT head brain negative Minimize central acting medications as possible. Fall Precautions. Well lighted room through the day and minimize interruptions through the night to prevent acute delirium. PULMONARY: Chest x-ray negative Supplemental 02 as needed BiPAP as necessary, for respiratory distress Titrate Fio2 to keep Spo2 > or = 90% DuoNebs and CPT as needed IS hourly while awake for pulmonary hygiene Out of bed to chair as tolerated VAP Bundle Maintain aspiration precautions at all times CARDIOVASCULAR: 2D echo pending results Follow hemodynamics. Vital signs per facility protocol GI & NUTRITION: Continue nutritional support Aspirations precautions Prokinetic agents and laxatives as needed KIDNEYS & ELECTROLYTES: Strict monitoring of intake and output Daily weights Avoid nephrotoxic agents Monitor electrolytes and replace as needed Goal urine output of 30mL/hr or 0.5mL/kg/hr Medications to be dosed according to renal function. Avoid contrast if possible ENDOCRINE: Maintain blood glucose between 100-180 at all times. Insulin sliding scale for blood glucose management Hypoglycemia and hyperglycemia protocol in place INFECTIOUS DISEASE: Trend temperature, WBC and procalcitonin level Follow cultures, deescalate antibiotics as soon as possible. Panculture if new onset fever HEMATOLOGY & COAGULATION: Monitor H&H. Keep Hgb > 7 Transfuse 1 unit of PRBC for Hgb < 7 Transfuse 1 pack of platelets of platelets < 20, 000 Watch for any signs and symptoms of bleeding SKIN: Pelvis x-ray showed osteopenia Cervical spine CT negative Pressure ulcer prevention per facility protocol Specialty mattress as needed Treatment plan discussed with patient and family at the bedside Medications to be reconciled once obtained by patient and/or family and available to be reconciled in computer p.r.n. 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 I reviewed the documentation, medical decision making, and treatment plan as noted by the mid-level provider above. I agree with the findings and plan of care. VICTORIANO DIXON MD, [facility] Mar 28, 2025 07:31
--- NOTE | 2025-03-28 13:23 | HMCSR ---
APPROVED REPORT EXAM: Two-dimensional and M-mode echocardiogram with Doppler and color Doppler. Study Details: TDS INDICATION ICD: Congestive heart failure 2D Dimensions RVDd4.0 cmLVEF(%)26.9 (>50%) IVSd0.5 (0.7-1.1cm)FS(%)13 % LVDd5.4 (3.8-5.6cm)LA (2D)5.2 (1.6-4.0cm) PWd0.7 (0.7-1.1cm)Ao Root(2D)3.1 (2.0-3.7cm) IVSs0.6 cmLVOT diam2.2 (1.8-2.4cm) LVDs4.7 (2.5-4.0cm)IVC diam2.0 cm PWs1.0 cm M-Mode Dimensions EPSS1.8 cm LA (MM)5.5 (1.6-4.0cm) Ao Root(MM)3.4 (2.0-3.7cm) Aortic Valve AoV Vmax2.4 m/Alejandra Peak GR23.0 mmHgLVOT Vmax0.9 m/s AoV VTI0.4 mAo Mean GR9.9 mmHgLVOT VTI0.17 m [place] (VMAX)1.30 cm2AVA (VTI) 1.4 cm2 Mitral Valve MV E Oudf820.6 cm/sDECEL Dhwi592 ms MV A Vmax51.7 cm/sP 1/2 T51 ms E/A ratio2.1MVA (PHT)4.3 cm2 TDI E/E' Bhudub61.7E/E' Pqjkciq45.7 Medial E' Peak V5.25 cm/sLateral E' Peak V5.25 cm/s Pulmonary Valve PV Vmax0.8 m/sPI End Betina. Paco 162.2 cm/s PV Peak GR2.3 mmHg Tricuspid Valve TR Vmax2.7 m/sRAP (EST) 8 khGrEJUS39.8 mmHg TR Peak GR29.8 mmHg Left Ventricle The left ventricle is normal size. There is mild left ventricular wall thinning of the septum. LVEF i s 50-55%. 3D volume EF 53%. Grade II diastolic dysfunction. Right Ventricle The right ventricle is normal size. Right ventricular systolic function is mildly reduced. Atria The left atrium size is dilated. ARGELIA not recorded. The right atrium is mildly dilated. Aortic Valve Aortic valve is trileaflet and sclerotic. No aortic regurgitation is present. Mild aortic stenosis wi th Vpk 2.4 m/s and MG 9.9 mmHg. Mitral Valve The mitral valve cusps are mildly thickened. There is mild mitral valve regurgitation noted. There is no mitral valve stenosis. Tricuspid Valve The tricuspid valve is normal in structure. There is mild tricuspid valve regurgitation noted. Pulmonic Valve The pulmonary valve is normal in structure. There is mild pulmonic valvular regurgitation. Great Vessels The aortic root is normal in size. The IVC is normal in size and collapses <50% with inspiration. Pericardium There is no pericardial effusion. Other Information Quality : Technically difficult study due to body habitus Rhythm : NSR Conclusion LVEF is 50-55%. 3D volume EF 53%. Grade II diastolic dysfunction. The left atrium is at least moderately dialted; the ARGELIA is not recorded. Aortic valve is trileaflet and sclerotic. Mild aortic stenosis with Vpk 2.4 m/s and MG 9.9 mmHg. The mitral valve cusps are mildly thickened. There is mild mitral valve regurgitation noted. The right atrium is mildly dilated. Mild tricuspid valve regurgitation.
--- NOTE | 2025-03-28 13:40 | NUR ---
PT SISTER CALLED STATES HE LIVES ALONE AND WOULD LIKE SNF FOR PT. MARTÍN RYDER [phone]
--- NOTE | 2025-03-28 14:05 | NUR ---
PT REQUESTING MEDICATION FOR ANXIETY AND NICOTINE PATCH. RAYMUNDO FLAME CUTTING MACHINE OPERATOR NOTIFIED.
[2025-03-28] MEDS: ALPRAZolam 0.25 MG TABLET PO PRN (14:28)
[2025-03-28] MEDS: NICOTINE 14 MG/ 24 HR PATCH TD SCH (14:28)
[2025-03-28] MEDS: MAGNESIUM 2GM PREMIX 50ML 50 ML IV SCH (15:24)
--- NOTE | 2025-03-28 17:19 | NUR ---
cm note met with pt but with some confusion. call made to patient's sister Glo [id number] who states pt lives in a trailer next to her home. sister states pt is independent with ambulation. no dme. but requires assistance with adls/care. was in process of placing him at [facility], but got more and more confused. so was brought to EMS to hospital. sister ne will bring in info tomorrow to hospital. says pt has medicare. and his name is Dakota MagnoMadi Barrientos. # [phone]. but she will bring in all his info tomorrow. Addendum: 03/28/25 at 1729 by NELLY JACKSON CM Amended: Links added.
[2025-03-29] VITALS (8 sets, daily range): BP systolic 116–168; BP diastolic 75–90; PULSE 56–86; RESP 17–22; TEMP 97.3–98.2; O2SAT 92–100
[2025-03-29] MEDS: ZOLPidem TARTrate 5 MG TAB PO PRN (01:53)
[2025-03-29] MEDS: DEXTROSE 50%-WATER 50 ML DISP.SYRIN IV PRN (05:46)
[2025-03-29 06:22] LABS: BASOPHILS # (AUTO) 0.08 K/uL (0.00-0.20); BASOPHILS % (AUTO) 1.2 % (0.0-5.0); EOSINOPHILS # (AUTO) 0.09 K/uL (0.00-0.70); EOSINOPHILS % (AUTO) 1.3 % (0.0-8.0); HEMATOCRIT 39.7 % (42-54); IMMATURE GRANULOCYTE ABSOLUTE 0.04 K/uL (0-1); LYMPHOCYTES # (AUTO) 1.1 K/uL (1.0-4.8); LYMPHOCYTES % (AUTO) 16.9 % (21.0-51.0); MEAN CORPUSCULAR HEMOGLOBIN 28.8 pg (27.0-33.0); MEAN CORPUSCULAR HGB CONC 31.2 g/dL (32.0-36.0); MEAN CORPUSCULAR VOLUME 92.1 fL (79-99); MONOCYTES # (AUTO) 0.7 K/uL (0.1-1.0); MONOCYTES % (AUTO) 9.9 % (3.0-13.0); NEUTROPHILS # (AUTO) 4.7 K/uL (1.8-7.7); NEUTROPHILS % (AUTO) 70.1 % (40.0-77.0); PLATELET COUNT (AUTO) 321 K/uL (130-400); RED BLOOD CELL COUNT(AUTO) 4.31 MIL/uL (4.50-6.20); RED CELL DISTRIBUTION WIDTH 15.7 % (11.0-15.5); WHITE BLOOD COUNT (AUTO) 6.7 K/uL (4.8-10.8)
[2025-03-29 06:32] LABS: ALBUMIN 3.1 g/dL (3.5-5.0); BILIRUBIN,TOTAL 0.5 mg/dL (0.2-1.0); CREATININE 0.6 mg/dL (0.5-1.3); MAGNESIUM 1.9 mg/dL (1.80-2.40); POTASSIUM 4.1 mmol/L (3.5-5.1); TOTAL PROTEIN, SERUM 6.7 g/dL (6.0-8.3)
[2025-03-29] MEDS ORDERED: PHARMACY COMMUNICATION MISC PRN (09:00)
[2025-03-29] MEDS ORDERED: LORazepam 2 MG/ML 1 ML VIAL IVP PRN (09:00)
--- NOTE | 2025-03-29 10:41 | PN ---
[facility] PROGRESS NOTE Date of Service: Mar 29, 2025 Time of Service: 10:32 SUBJECTIVE: 03/29/2025 - patient is seen in room 320. Patient is currently hemodynamically stable and labs show improvement on the electrolytes. Patient had an hypoglycemic episode this morning with serum glucose 60 and was transfused with the dextrose, on repeat glucose it does 149. Patient appears somnolent and is not responding appropriately to questioning. Home medications still pending. Plan to follow up with case management regarding placement of the patient in a long-term. Serum toxicology has been ordered. BNP elevated to 2150. Patient will be monitored closely REVIEW OF SYSTEMS CONSTITUTIONAL: Denies fevers, chills, or night sweats. No unintentional weight loss reported. NEUROLOGICAL: Denies headache, amaurosis fugax, motor weakness, sensory deficit, vertigo/spinning sensation, gait abnormalities, or tremors. ENT: No hearing loss, otalgia, otorrhea, rhinitis, rhinorrhea, hoarseness, or sore throat. CARDIOVASCULAR: Denies any exertional angina, dyspnea on exertion, orthopnea, paroxysmal nocturnal dyspnea, palpitations, life-threatening arrhythmias, cla udication. PULMONARY: Denies any shortness of breath, cough, phlegm/sputum, hemoptysis, pleuritic chest pain. SLEEP: Denies morning headaches, daytime somnolence or napping. Denies difficulty falling asleep, staying asleep, waking from sleep. Denies knowledge of snoring. GASTROINTESTINAL: Denies any type of dysphagia to either liquids or solids. Denies nausea, vomiting, pyrosis, early satiety, abdominal pain, diarrhea, constipation, or changes in stool consistency or caliber. Denies coffee-ground emesis, hematemesis, hematochezia, or melanotic stools. GENITOURINARY: Denies frequency, urgency, nocturia, hematuria or incontinence (Storage/Irritative symptoms.) Low urinary stream, straining to void, urinary intermittency or hesitancy, splitting of the voiding stream, terminal dribbling. ENDOCRINOLOGIC: Denies polyuria, polydipsia, polyphagia or heat/cold intolerances. HEMATOLOGIC: Denies thrombophilia/previous clots, or coagulopathy/bleeding disorders. ONCOLOGIC: Denies personal history of malignancy. DERMATOLOGIC: Denies rashes or pruritus. Multiple skin tears PSYCHIATRIC: Denies any suicidal or homicidal ideation. Denies hallucinations. PHYSICAL EXAM GENERAL APPEARANCE: The patient is awake, alert, and oriented, in no acute cardiopulmonary distress. NEUROLOGICAL: Cranial nerves II-XII grossly intact. Motor is 5/5 in bilateral upper and lower extremities proximal to distal. No sensory deficits. HEENT: Face is symmetric. Pupils are equal and reactive. Extraocular movements are intact. NECK: Supple. No JVD. No thyromegaly. No submental, submandibular, pre- /postauricular, occipital or supraclavicular lymphadenopathy. CHEST: Normal chest expansion. No Telemetry. LUNGS: Absence of any rales, rhonchi or any wheezing. CARDIOVASCULAR: Regular. S1 and S2 normal. No appreciable rubs, murmurs or gallops. ABDOMEN: Soft, nontender, and nondistended. There is no rebound, voluntary guarding, or rigidity. : Deferred. No [place]. EXTREMITIES: Non-edematous and not cyanotic. No clubbing. Good capillary refill. SKIN: Multiple skin tears Vital Signs (last 8hr) Date Time Temp Pulse Resp B/P (MAP) Pulse Ox O2 Delivery O2 Flow Rate FiO2 03/29/25 08:00 97.3 56 18 124/75 100 Room Air 03/29/25 03:04 97.7 68 22 136/90 96 Room Air LABS: Laboratory: Test 03/29/25 06:23 03/29/25 05:43 03/29/25 05:38 03/28/25 05:32 Range/Units Whole Blood Glucose 149 #H 70-110 MG/DL White Blood Count 6.7 4.8-10.8 K/uL Red Blood Count 4.31 L 4.50-6.20 MIL/uL Hemoglobin 12.4 L 14.0-18.0 g/dL Hematocrit 39.7 L 42-54 % Mean Corpuscular Volume 92.1 79-99 fL Mean Corpuscular Hemoglobin 28.8 27.0-33.0 pg Mean Corpuscular Hemoglobin Concent 31.2 L 32.0-36.0 g/dL Red Cell Distribution Width 15.7 H 11.0-15.5 % Platelet Count 321 130-400 K/uL Mean Platelet Volume 9.6 7.5-10.5 fL Immature Granulocyte % (Auto) 0.6 0-1 % Neutrophils (%) (Auto) 70.1 40.0-77.0 % Lymphocytes (%) (Auto) 16.9 L 21.0-51.0 % Monocytes (%) (Auto) 9.9 3.0-13.0 % Eosinophils (%) (Auto) 1.3 0.0-8.0 % Basophils (%) (Auto) 1.2 0.0-5.0 % Neutrophils # (Auto) 4.7 1.8-7.7 K/uL Lymphocytes # (Auto) 1.1 1.0-4.8 K/uL Monocytes # (Auto) 0.7 0.1-1.0 K/uL Eosinophils # (Auto) 0.09 0.00-0.70 K/uL Basophils # (Auto) 0.08 0.00-0.20 K/uL Absolute Immature Granulocyte (auto 0.04 0-1 K/uL Nucleated Red Blood Cells 0.0 0.0-0.19 % Sodium Level 138 136-145 mmol/L Potassium Level 4.1 3.5-5.1 mmol/L Chloride Level 104 101-111 mmol/L Carbon Dioxide Level 29 21-32 mmol/L Blood Urea Nitrogen 11 7-18 mg/dL Creatinine 0.6 0.5-1.3 mg/dL Glomerular Filtration Rate Calc 99 >90 mL/min Random Glucose 96 70-105 mg/dL Total Calcium 8.9 8.5-10.1 mg/dL Magnesium Level 1.90 1.80-2.40 mg/dL Total Bilirubin 0.5 0.2-1.0 mg/dL Aspartate Amino Transf (AST/SGOT) 61 H 10-37 U/L Alanine Aminotransferase (ALT/SGPT) 44 12-78 U/L Alkaline Phosphatase 170 H 50-136 U/L Total Protein 6.7 6.0-8.3 g/dL Albumin 3.1 L 3.5-5.0 g/dL Bedside Glucose Comment Notified Nurse Prothrombin Time 11.1 9.6-11.6 SEC Prothromb Time International Ratio 1.05 0.85-1.15 Activated Partial Thromboplast Time 29.5 26.3-35.5 SEC Hemoglobin A1c 5.4 4.0-6.0 % Estimated Average Glucose (eAG) 108 70-126 mg/dL Lactic Acid Level 1.7 0.8-2.5 mmol/L Direct Bilirubin 0.1 0.0-0.3 mg/dL Ammonia < 10 L 11-32 umol/L Total Creatine Kinase 177 21-232 U/L [id number] Natriuretic Peptide 2130 H 0-450 pg/mL Amylase Level 26 25-115 U/L Lipase 26 16-77 U/L Procalcitonin < 0.05 L 0.05-0.5 ng/mL Test 03/27/25 11:15 03/27/25 11:00 Range/Units Influenza Type A Antigen Negative For Type A NEGATIVE Influenza Type B Antigen Negative For Type B NEGATIVE SARS-CoV-2 Antigen (Rapid) PRESUMPTIVE NEGATIVE NEGATIVE Urine Color LIGHT-YELLOW YELLOW Urine Appearance CLEAR CLEAR Urine pH 6.0 5.0-8.0 Urine Specific [place] 1.007 1.001-1.031 Urine Protein NEGATIVE NEGATIVE mg/dL Urine Glucose (UA) NEGATIVE NEGATIVE mg/dL Urine Ketones NEGATIVE NEGATIVE mg/dL Urine Occult Blood NEGATIVE NEGATIVE Urine Nitrate NEGATIVE NEGATIVE Urine Bilirubin NEGATIVE NEGATIVE mg/dL Urine Urobilinogen 0.2 0.2-1.0 mg/dL Urine Leukocyte Esterase NEGATIVE NEGATIVE Gary/uL Urine RBC 0-1 0-1 /HPF Urine WBC 0-1 0-1 /HPF Urine Bacteria None None Seen /HPF Current Medications Medications (Trade) Dose Ordered Sig/Michelle Route PRN Reason Start Time Stop Time Status Last Admin Dose Admin Acetaminophen (TYLenol 325MG TAB) 650 mg Q4H PRN PO MILD PAIN (1-3) 03/27/25 11:00 03/27/25 10:58 DC Acetaminophen (TYLenol 325MG TAB) 650 mg Q6H PRN PO MILD PAIN (1-3) 03/27/25 11:00 04/26/25 10:59 Acetaminophen (TYLenol 325MG TAB) 650 mg Q6H PRN PO TEMPERATURE GREATER THAN 101.5 03/27/25 11:00 04/26/25 10:59 Al Hydroxide/Mg Hydroxide (MAALox PLUS 30ML) 30 ml Q6H PRN PO INDIGESTION 03/27/25 11:00 04/26/25 10:59 Alprazolam (XANax 0.25MG) 0.25 mg BID PRN PO ANXIETY/AGITATION 03/28/25 14:30 04/27/25 14:29 03/28/25 20:04 0.25 MG Chlordiazepoxide HCl (LIBrium 25 MG CAP) 25 mg Q2H PRN PO ALCOHOL WITHDRAWAL PROTOCOL 03/29/25 09:00 04/05/25 08:59 Dextrose (D50w) 50 ml AD PRN IV HYPOGLYCEMIA PROTOCOL 03/27/25 11:00 04/26/25 10:59 03/29/25 05:46 50 ML Diphenhydramine HCl (BENAdryl INJ) 25 mg Q6H PRN IV SEVERE ITCHING/RASH 03/27/25 11:00 04/26/25 10:59 Famotidine (Pepcid 20mg Vial) 20 mg BID IV 03/27/25 21:00 04/26/25 20:59 03/29/25 09:41 20 MG Famotidine (Pepcid 20mg Vial) 20 mg BID PRN IV NAUSEA/VOMITING 03/27/25 11:00 03/27/25 10:58 DC Glucagon (Glucagon 1mg Kit) 1 mg AD PRN IM HYPOGLYCEMIA PROTOCOL 03/27/25 11:00 04/26/25 10:59 Guaifenesin/ Dextromethorphan (RobiTUSSin DM 200/20MG 10ML) 10 ml Q4H PRN PO COUGH 03/27/25 11:00 04/26/25 10:59 Heparin Sodium (Porcine) (HEParin 5,000 UNIT VIAL) 5,000 unit BID SQ 03/27/25 21:00 04/26/25 20:59 03/29/25 10:01 5,000 UNIT Hydralazine HCl (APRESOLine 20MG INJ) 10 mg Q6H PRN IV For:SBP above 160;DBP above 90 03/27/25 11:00 04/26/25 10:59 Insulin Human Regular (humuLIN R 100 UNIT/ML 3ML) INSULIN SLIDING SCAL... ACHS SQ 03/27/25 11:30 04/26/25 11:29 Ketorolac Tromethamine (toRADol) 15 mg Q8H PRN IV MODERATE PAIN (4-6) 03/27/25 11:00 04/01/25 10:59 Lactulose (Constulose 20gm/ 30ml Udcup) 20 gm BID PRN PO CONSTIPATION 03/27/25 11:00 04/26/25 10:59 Lorazepam (AtiVAN) 2 mg Q4H PRN IVP ALCOHOL WITHDRAWAL PROTOCOL 03/29/25 09:00 03/29/25 08:48 DC Magnesium Sulfate 50 ml @ 0 mls/hr PROTOCOL IV 03/27/25 11:00 03/28/25 07:33 DC 03/27/25 11:11 50 MLS/HR Magnesium Sulfate 50 ml @ 0 mls/hr PROTOCOL IV 03/28/25 07:30 04/27/25 07:29 03/28/25 15:24 25 MLS/HR Magnesium Sulfate 50 ml @ 0 mls/hr PROTOCOL PRN IV OTHER [SEE ORDER COMMENTS] 03/27/25 11:00 03/27/25 10:48 DC Magnesium Sulfate 50 ml @ 0 mls/hr PROTOCOL PRN IV OTHER [SEE ORDER COMMENTS] 03/27/25 11:00 03/28/25 07:33 DC Morphine Sulfate (morPHINE 2MG SYG) 1 mg Q4H PRN IVP SEVERE PAIN (7-10) 03/27/25 11:00 04/03/25 10:59 Nicotine (Nicoderm) 14 mg DAILY TD 03/28/25 14:30 04/27/25 14:29 03/29/25 09:41 14 MG Nitroglycerin (Nitrostat) 0.4 mg PROTOCOL PRN SL CHEST PAIN 03/27/25 11:00 04/26/25 10:59 Ondansetron HCl (zoFRAN 4MG INJ) 4 mg Q6H PRN IV NAUSEA/VOMITING 03/27/25 11:00 04/26/25 10:59 Pharmacy Profile Note (Pharmacy Communication) 1 each PROTOCOL PRN MISC ETOH Withdrawal Score changes 03/29/25 09:00 04/05/25 08:59 Potassium Chloride 100 ml @ 100 mls/hr AD PRN IV POTASSIUM PROTOCOL 03/27/25 11:00 03/27/25 10:48 DC Potassium Chloride 100 ml @ 100 mls/hr AD PRN IV POTASSIUM PROTOCOL 03/27/25 11:00 04/26/25 10:59 Potassium Chloride (K-Dur/Klor-Con 20meq) 20 meq AD PRN PO POTASSIUM PROTOCOL 03/27/25 11:00 03/27/25 10:48 DC Potassium Chloride (K-Dur/Klor-Con 20meq) 20 meq AD PRN PO POTASSIUM PROTOCOL 03/27/25 11:00 04/26/25 10:59 Potassium Chloride (KCl 10% Elixir 20meq/15ml) 20 meq AD PRN PO POTASSIUM PROTOCOL 03/27/25 11:00 03/27/25 10:48 DC Potassium Chloride (KCl 10% Elixir 20meq/15ml) 20 meq AD PRN PO POTASSIUM PROTOCOL 03/27/25 11:00 04/26/25 10:59 03/28/25 17:09 20 MEQ Sodium Chloride 1,000 ml @ 100 mls/hr Q10H IV 03/27/25 11:00 04/26/25 10:59 03/29/25 02:32 100 MLS/HR Zolpidem Tartrate (AmbIEN) 5 mg HS PRN PO INSOMNIA 03/27/25 11:00 04/26/25 10:59 03/29/25 01:53 5 MG DIAGNOSTICS / RADIOLOGY: PATIENT: GELA ZULETA MR#: [id number] : 1945 SEX: M AGE: 79 LOCATION: [facility] ORDER 1052 STATUS: ADM IN REPORT#: [id number] SERVICE [id number] REASON: chf ORDERING PHYSICIAN: DILCIA AGUILLON APRN PROCEDURE: ECHO CMP - ECHO 2-D COMPLETE APPROVED REPORT EXAM: Two-dimensional and M-mode echocardiogram with Doppler and color Doppler. Study Details: TDS INDICATION ICD: Congestive heart failure 2D Dimensions RVDd 4.0 cm LVEF(%) 26.9 (>50%) IVSd 0.5 (0.7-1.1cm) FS(%) 13 % LVDd 5.4 (3.8-5.6cm) LA (2D) 5.2 (1.6-4.0cm) PWd 0.7 (0.7-1.1cm) Ao Root(2D) 3.1 (2.0-3.7cm) IVSs 0.6 cm LVOT diam 2.2 (1.8-2.4cm) LVDs 4.7 (2.5-4.0cm) IVC diam 2.0 cm PWs 1.0 cm M-Mode Dimensions EPSS 1.8 cm LA (MM) 5.5 (1.6-4.0cm) Ao Root(MM) 3.4 (2.0-3.7cm) Aortic Valve AoV Vmax 2.4 m/s Ao Peak GR 23.0 mmHg LVOT Vmax 0.9 m/s AoV VTI 0.4 m Ao Mean GR 9.9 mmHg LVOT VTI 0.17 m [place] (VMAX) 1.30 cm2 [place] (VTI) 1.4 cm2 Mitral Valve MV E Vmax 108.6 cm/s DECEL Time 149 ms MV A Vmax 51.7 cm/s P 1/2 T 51 ms E/A ratio 2.1 MVA (PHT) 4.3 cm2 TDI E/E' Medial 20.7 E/E' Lateral 20.7 Medial E' Peak V 5.25 cm/s Lateral E' Peak V 5.25 cm/s Pulmonary Valve PV Vmax 0.8 m/s PI End Betina. Paco 162.2 cm/s PV Peak GR 2.3 mmHg Tricuspid Valve TR Vmax 2.7 m/s RAP (EST) 8 mmHg RVSP 37.8 mmHg TR Peak GR 29.8 mmHg Left Ventricle The left ventricle is normal size. There is mild left ventricular wall thinning of the septum. LVEF is 50-55%. 3D volume EF 53%. Grade II diastolic dysfunction. Right Ventricle The right ventricle is normal size. Right ventricular systolic function is mildly reduced. Atria The left atrium size is dilated. ARGELIA not recorded. The right atrium is mildly dilated. Aortic Valve Aortic valve is trileaflet and sclerotic. No aortic regurgitation is present. Mild aortic stenosis with Vpk 2.4 m/s and MG 9.9 mmHg. Mitral Valve The mitral valve cusps are mildly thickened. There is mild mitral valve regurgitation noted. There is no mitral valve stenosis. Tricuspid Valve The tricuspid valve is normal in structure. There is mild tricuspid valve regurgitation noted. Pulmonic Valve The pulmonary valve is normal in structure. There is mild pulmonic valvular regurgitation. Great Vessels The aortic root is normal in size. The IVC is normal in size and collapses <50% with inspiration. Pericardium There is no pericardial effusion. Other Information Quality : Technically difficult study due to body habitus Rhythm : NSR Conclusion LVEF is 50-55%. 3D volume EF 53%. Grade II diastolic dysfunction. The left atrium is at least moderately dialted; the ARGELIA is not recorded. Aortic valve is trileaflet and sclerotic. Mild aortic stenosis with Vpk 2.4 m/s and MG 9.9 mmHg. The mitral valve cusps are mildly thickened. There is mild mitral valve regurgitation noted. The right atrium is mildly dilated. Mild tricuspid valve regurgitation. DICTATED BY: TIN MADRIGAL DO DATE: 03/28/25 0959 ELECTRONICALLY SIGNED BY: TIN MADRIGAL DO DATE: 03/28/25 1323 ASSESSMENT: [ S/p fall POA Acute dehydration POA Generalized body weakness POA Electrolyte imbalance hypokalemia hypomagnesemia POA Multifactorial anemia POA Osteopenia per pelvis x-ray 03/27/2025 Acute congestive heart failure BNP 343 POA Uncontrolled hypertension POA Dementia POA Hyperlipidemia POA Uncontrolled diabetes mellitus type 2 with hypoglycemia POA Anxiety POA Multiple skin tears POA History of stroke] PLAN: Acute dehydration, Generalized body weakness, Electrolyte imbalance hypokalemia hypomagnesemia Correct electrolytes as needed Follow up with the labs vitamin B12, folic acid Plan to order a banana bag NS at 100 mL/hour - currently on hold due to elevated BNP Acute congestive heart failure ,Uncontrolled hypertension Continue the home medications for blood pressure control as soon as they are rec onciled Patient's BNP elevated to 2150 - currently asymptomatic and saturating at 99% on room air Echocardiogram revealed 50-55% EF with stage II diastolic dysfunction CT head negative Pelvis x-ray showed osteopenia and no significant abnormalities Cervical CT showed no abnormalities. GI prophylaxis with famotidine DVT prophylaxis with heparin ATTESTATION BY PHYSICIAN I have seen and examined the patient. I reviewed the documentation, medical decision making, and treatment plan as noted by the resident provider above. I agree with the findings and plan of care. Markie Mccall MD, KEERTI K MD Mar 29, 2025 10:41
[2025-03-29 11:09] LABS: THYROID STIMULATING HORMONE 4.33 uIU/mL (0.36-3.74)
[2025-03-29] MEDS ORDERED: COMPOUND IV MISC 1 EACH IVSOLN MISC PRN (12:00)
[2025-03-29] MEDS ORDERED: COMPOUND IV REFRIGERATED 1 EACH IVSOLN MISC PRN (12:00)
[2025-03-29] MEDS: M.V.I. IV [ADULT] 10 ML, FOLic ACID 5 MG/ML VIAL 1 MG, THIAMINE HCL 100 MG in 0.9%NACL ... IV ONE (12:08)
[2025-03-29] MEDS: ondanSETRON 4MG INJ IV PRN (19:35)
[2025-03-29] MEDS ORDERED: BUSP15 PO (19:37)
[2025-03-29] MEDS ORDERED: OLME20TA68 PO (19:37)
[2025-03-29] MEDS ORDERED: CILO50TA2 PO (19:40)
[2025-03-29] MEDS ORDERED: PARO30TA60 PO (19:40)
[2025-03-29] MEDS ORDERED: DONE-51 PO (19:40)
[2025-03-29] MEDS ORDERED: PRAV40TA62 PO (19:40)
[2025-03-29] MEDS: chlordiazePOXIDE HCL 25 MG CAP PO PRN (21:41)
--- NOTE | 2025-03-30 03:17 | NUR ---
PATIENT PULLED OUT RIGHT ARM IV
[2025-03-30 03:19] VITALS: BP 176/85; PULSE 73; RESP 18; TEMP 97.8
[2025-03-30] MEDS: hydrALAZine 20MG/ML VIAL IV PRN (04:42)
[2025-03-30 05:16] VITALS: BP 111/65; PULSE 78; RESP 18
[2025-03-30 06:50] LABS: BASOPHILS # (AUTO) 0.05 K/uL (0.00-0.20); BASOPHILS % (AUTO) 0.6 % (0.0-5.0); EOSINOPHILS # (AUTO) 0.07 K/uL (0.00-0.70); EOSINOPHILS % (AUTO) 0.8 % (0.0-8.0); HEMATOCRIT 36.6 % (42-54); IMMATURE GRANULOCYTE ABSOLUTE 0.04 K/uL (0-1); LYMPHOCYTES # (AUTO) 1.1 K/uL (1.0-4.8); LYMPHOCYTES % (AUTO) 12.6 % (21.0-51.0); MEAN CORPUSCULAR HEMOGLOBIN 28.5 pg (27.0-33.0); MEAN CORPUSCULAR HGB CONC 31.7 g/dL (32.0-36.0); MEAN CORPUSCULAR VOLUME 89.9 fL (79-99); MONOCYTES # (AUTO) 0.8 K/uL (0.1-1.0); MONOCYTES % (AUTO) 8.8 % (3.0-13.0); NEUTROPHILS # (AUTO) 6.9 K/uL (1.8-7.7); NEUTROPHILS % (AUTO) 76.8 % (40.0-77.0); PLATELET COUNT (AUTO) 270 K/uL (130-400); RED BLOOD CELL COUNT(AUTO) 4.07 MIL/uL (4.50-6.20); RED CELL DISTRIBUTION WIDTH 15.6 % (11.0-15.5)
[2025-03-30 07:15] LABS: CREATININE 0.7 mg/dL (0.5-1.3); POTASSIUM 4.2 mmol/L (3.5-5.1)
[2025-03-30 07:59] VITALS: BP 92/56; PULSE 91; RESP 17; TEMP 97.6
[2025-03-30] MEDS ORDERED: SODIUM CL 4MEQ/ML 30ML 154 MEQ in DEXTROSE 10%-WATER 961.5 ML IV SCH (11:00)
[2025-03-30 11:06] LABS: HIV 1&2 ANTIBODY Non-Reactive (Negative); HIV-1 p24 Antigen Non-Reactive (Negative)
[2025-03-30] MEDS: CILOstazol 100 MG TAB PO SCH (11:17)
[2025-03-30] MEDS: PARoxetine HCL 20 MG TABLET PO SCH (11:17)
[2025-03-30] MEDS: busPIRone HCL 5 MG TABLET PO SCH (11:17)
--- NOTE | 2025-03-30 13:15 | PN ---
[facility] PROGRESS NOTE Date of Service: Mar 30, 2025 Time of Service: 13:11 SUBJECTIVE: 03/29/2025 - patient is seen in room 320. Patient is currently hemodynamically stable and labs show improvement on the electrolytes. Patient had an hypoglycemic episode this morning with serum glucose 60 and was transfused with the dextrose, on repeat glucose it does 149. Patient appears somnolent and is not responding appropriately to questioning. Home medications still pending. Plan to follow up with case management regarding placement of the patient in a halfway. Serum toxicology has been ordered. BNP elevated to 2150. Patient will be monitored closely 03/30/2025 - patient seen in room 320. Patient currently asymptomatic and hemodynamically stable, all labs are normal. Patient has recurrent hypoglycemic events and started on 10% dextrose water. Patient is awake and alert today, still pending on serum toxicology. Case management informed about the patient being referred to SNF/long term. Viral markers has been ordered on the patient. We will monitor the patient closely. REVIEW OF SYSTEMS CONSTITUTIONAL: Denies fevers, chills, or night sweats. No unintentional weight loss reported. NEUROLOGICAL: Denies headache, amaurosis fugax, motor weakness, sensory deficit, vertigo/spinning sensation, gait abnormalities, or tremors. ENT: No hearing loss, otalgia, otorrhea, rhinitis, rhinorrhea, hoarseness, or sore throat. CARDIOVASCULAR: Denies any exertional angina, dyspnea on exertion, orthopnea, paroxysmal nocturnal dyspnea, palpitations, life-threatening arrhythmias, claudication. PULMONARY: Denies any shortness of breath, cough, phlegm/sputum, hemoptysis, pleuritic chest pain. SLEEP: Denies morning headaches, daytime somnolence or napping. Denies difficulty falling asleep, staying asleep, waking from sleep. Denies knowledge of snoring. GASTROINTESTINAL: Denies any type of dysphagia to either liquids or solids. Denies nausea, vomiting, pyrosis, early satiety, abdominal pain, diarrhea, constipation, or changes in stool consistency or caliber. Denies coffee-ground emesis, hematemesis, hematochezia, or melanotic stools. GENITOURINARY: Denies frequency, urgency, nocturia, hematuria or incontinence (Storage/Irritative symptoms.) Low urinary stream, straining to void, urinary intermittency or hesitancy, splitting of the voiding stream, terminal dribbling. ENDOCRINOLOGIC: Denies polyuria, polydipsia, polyphagia or heat/cold intolerances. HEMATOLOGIC: Denies thrombophilia/previous clots, or coagulopathy/bleeding disorders. ONCOLOGIC: Denies personal history of malignancy. DERMATOLOGIC: Denies rashes or pruritus. Multiple skin tears PSYCHIATRIC: Denies any suicidal or homicidal ideation. Denies hallucinations. PHYSICAL EXAM GENERAL APPEARANCE: The patient is awake, alert, and oriented, in no acute cardiopulmonary distress. NEUROLOGICAL: Cranial nerves II-XII grossly intact. Motor is 5/5 in bilateral upper and lower extremities proximal to distal. No sensory deficits. HEENT: Face is symmetric. Pupils are equal and reactive. Extraocular movements are intact. NECK: Supple. No JVD. No thyromegaly. No submental, submandibular, pre- /postauricular, occipital or supraclavicular lymphadenopathy. CHEST: Normal chest expansion. No Telemetry. LUNGS: Absence of any rales, rhonchi or any wheezing. CARDIOVASCULAR: Regular. S1 and S2 normal. No appreciable rubs, murmurs or gallops. ABDOMEN: Soft, nontender, and nondistended. There is no rebound, voluntary guarding, or rigidity. : Deferred. No [place]. EXTREMITIES: Non-edematous and not cyanotic. No clubbing. Good capillary refill. SKIN: Multiple skin tears Vital Signs (last 8hr) Date Time Temp Pulse Resp B/P (MAP) Pulse Ox O2 Delivery O2 Flow Rate FiO2 03/30/25 07:59 97.5 91 17 92/56 Room Air 03/30/25 05:16 78 18 111/65 Room Air LABS: Laboratory: Test 03/30/25 11:07 03/30/25 09:59 03/30/25 06:30 03/30/25 05:21 Range/Units Whole Blood Glucose 82 70-110 MG/DL HIV (1&2) Antibody Non-Reactive Negative HIV P24 Antigen, Qualitative Non-Reactive Negative White Blood Count 9.0 4.8-10.8 K/uL Red Blood Count 4.07 L 4.50-6.20 MIL/uL Hemoglobin 11.6 L 14.0-18.0 g/dL Hematocrit 36.6 L 42-54 % Mean Corpuscular Volume 89.9 79-99 fL Mean Corpuscular Hemoglobin 28.5 27.0-33.0 pg Mean Corpuscular Hemoglobin Concent 31.7 L 32.0-36.0 g/dL Red Cell Distribution Width 15.6 H 11.0-15.5 % Platelet Count 270 130-400 K/uL Mean Platelet Volume 10.1 7.5-10.5 fL Immature Granulocyte % (Auto) 0.4 0-1 % Neutrophils (%) (Auto) 76.8 40.0-77.0 % Lymphocytes (%) (Auto) 12.6 L 21.0-51.0 % Monocytes (%) (Auto) 8.8 3.0-13.0 % Eosinophils (%) (Auto) 0.8 0.0-8.0 % Basophils (%) (Auto) 0.6 0.0-5.0 % Neutrophils # (Auto) 6.9 1.8-7.7 K/uL Lymphocytes # (Auto) 1.1 1.0-4.8 K/uL Monocytes # (Auto) 0.8 0.1-1.0 K/uL Eosinophils # (Auto) 0.07 0.00-0.70 K/uL Basophils # (Auto) 0.05 0.00-0.20 K/uL Absolute Immature Granulocyte (auto 0.04 0-1 K/uL Nucleated Red Blood Cells 0.0 0.0-0.19 % Erythrocyte Sedimentation Rate 9 0-20 MM/HR Sodium Level 138 136-145 mmol/L Potassium Level 4.2 3.5-5.1 mmol/L Chloride Level 105 101-111 mmol/L Carbon Dioxide Level 24 21-32 mmol/L Blood Urea Nitrogen 19 H 7-18 mg/dL Creatinine 0.7 0.5-1.3 mg/dL Glomerular Filtration Rate Calc 95 >90 mL/min Random Glucose 106 H 70-105 mg/dL Total Calcium 8.5 8.5-10.1 mg/dL C-Reactive Protein, Quantitative 11.20 H 0.5-3.0 mg/L Bedside Glucose Comment Notified Nurse Test 03/29/25 10:55 03/29/25 05:43 Range/Units Whole Blood Ketones Quantitative 0.2 0.0-0.6 mmol/L Free Thyroxine (T4) Direct 1.13 0.76-1.46 ng/dL Free Triiodothyronine (T3) pg/mL 1.76 L 2.18-3.98 pg/mL Magnesium Level 1.90 1.80-2.40 mg/dL Total Bilirubin 0.5 0.2-1.0 mg/dL Aspartate Amino Transf (AST/SGOT) 61 H 10-37 U/L Alanine Aminotransferase (ALT/SGPT) 44 12-78 U/L Alkaline Phosphatase 170 H 50-136 U/L Total Protein 6.7 6.0-8.3 g/dL Albumin 3.1 L 3.5-5.0 g/dL Vitamin B12 Level 447 193-986 pg/mL Folic Acid (LAB) 11.20 2-20 ng/mL Thyroid Stimulating Hormone (TSH) 4.33 H 0.36-3.74 uIU/mL Current Medications Medications (Trade) Dose Ordered Sig/Michelle Route PRN Reason Start Time Stop Time Status Last Admin Dose Admin Acetaminophen (TYLenol 325MG TAB) 650 mg Q4H PRN PO MILD PAIN (1-3) 03/27/25 11:00 03/27/25 10:58 DC Acetaminophen (TYLenol 325MG TAB) 650 mg Q6H PRN PO MILD PAIN (1-3) 03/27/25 11:00 04/26/25 10:59 Acetaminophen (TYLenol 325MG TAB) 650 mg Q6H PRN PO TEMPERATURE GREATER THAN 101.5 03/27/25 11:00 04/26/25 10:59 Al Hydroxide/Mg Hydroxide (MAALox PLUS 30ML) 30 ml Q6H PRN PO INDIGESTION 03/27/25 11:00 04/26/25 10:59 Alprazolam (XANax 0.25MG) 0.25 mg BID PRN PO ANXIETY/AGITATION 03/28/25 14:30 03/29/25 10:32 DC 03/28/25 20:04 0.25 MG Atorvastatin Calcium (LIPItor 10MG) 10 mg HS PO 03/30/25 21:00 04/29/25 20:59 Buspirone HCl (BUspar) 10 mg TID PO 03/30/25 09:00 04/29/25 08:59 03/30/25 11:17 10 MG Chlordiazepoxide HCl (LIBrium 25 MG CAP) 25 mg Q2H PRN PO ALCOHOL WITHDRAWAL PROTOCOL 03/29/25 09:00 04/05/25 08:59 03/29/25 21:41 25 MG Cilostazol (PLETal 100MG TAB) 50 mg BID PO 03/30/25 09:00 04/29/25 08:59 03/30/25 11:17 50 MG Dextrose (D50w) 50 ml AD PRN IV HYPOGLYCEMIA PROTOCOL 03/27/25 11:00 04/26/25 10:59 03/29/25 05:46 50 ML Diphenhydramine HCl (BENAdryl INJ) 25 mg Q6H PRN IV SEVERE ITCHING/RASH 03/27/25 11:00 04/26/25 10:59 Donepezil HCl (ARIcept 5MG TAB) 5 mg HS PO 03/30/25 21:00 04/29/25 20:59 Famotidine (Pepcid 20mg Vial) 20 mg BID IV 03/27/25 21:00 04/26/25 20:59 03/30/25 11:16 20 MG Famotidine (Pepcid 20mg Vial) 20 mg BID PRN IV NAUSEA/VOMITING 03/27/25 11:00 03/27/25 10:58 DC Glucagon (Glucagon 1mg Kit) 1 mg AD PRN IM HYPOGLYCEMIA PROTOCOL 03/27/25 11:00 04/26/25 10:59 Guaifenesin/ Dextromethorphan (RobiTUSSin DM 200/20MG 10ML) 10 ml Q4H PRN PO COUGH 03/27/25 11:00 04/26/25 10:59 Heparin Sodium (Porcine) (HEParin 5,000 UNIT VIAL) 5,000 unit BID SQ 03/27/25 21:00 04/26/25 20:59 03/30/25 11:35 5,000 UNIT Home Med (Home Medication) DAILY PO 03/30/25 09:00 04/29/25 08:59 Hydralazine HCl (APRESOLine 20MG INJ) 10 mg Q6H PRN IV For:SBP above 160;DBP above 90 03/27/25 11:00 04/26/25 10:59 03/30/25 04:42 10 MG Insulin Human Regular (humuLIN R 100 UNIT/ML 3ML) INSULIN SLIDING SCAL... ACHS SQ 03/27/25 11:30 04/26/25 11:29 Ketorolac Tromethamine (toRADol) 15 mg Q8H PRN IV MODERATE PAIN (4-6) 03/27/25 11:00 04/01/25 10:59 Lactulose (Constulose 20gm/ 30ml Udcup) 20 gm BID PRN PO CONSTIPATION 03/27/25 11:00 04/26/25 10:59 Lorazepam (AtiVAN) 2 mg Q4H PRN IVP ALCOHOL WITHDRAWAL PROTOCOL 03/29/25 09:00 03/29/25 08:48 DC Magnesium Sulfate 50 ml @ 0 mls/hr PROTOCOL IV 03/27/25 11:00 03/28/25 07:33 DC 03/27/25 11:11 50 MLS/HR Magnesium Sulfate 50 ml @ 0 mls/hr PROTOCOL IV 03/28/25 07:30 04/27/25 07:29 03/28/25 15:24 25 MLS/HR Magnesium Sulfate 50 ml @ 0 mls/hr PROTOCOL PRN IV OTHER [SEE ORDER COMMENTS] 03/27/25 11:00 03/27/25 10:48 DC Magnesium Sulfate 50 ml @ 0 mls/hr PROTOCOL PRN IV OTHER [SEE ORDER COMMENTS] 03/27/25 11:00 03/28/25 07:33 DC Morphine Sulfate (morPHINE 2MG SYG) 1 mg Q4H PRN IVP SEVERE PAIN (7-10) 03/27/25 11:00 04/03/25 10:59 Nicotine (Nicoderm) 14 mg DAILY TD 03/28/25 14:30 04/27/25 14:29 03/30/25 11:17 14 MG Nitroglycerin (Nitrostat) 0.4 mg PROTOCOL PRN SL CHEST PAIN 03/27/25 11:00 04/26/25 10:59 Ondansetron HCl (zoFRAN 4MG INJ) 4 mg Q6H PRN IV NAUSEA/VOMITING 03/27/25 11:00 04/26/25 10:59 03/29/25 19:35 4 MG Paroxetine HCl (PAxil 20 MG TABLET) 30 mg DAILY PO 03/30/25 09:00 04/29/25 08:59 03/30/25 11:17 30 MG Pharmacy Profile Note (Pharmacy Communication) 1 each PROTOCOL PRN MISC ETOH Withdrawal Score changes 03/29/25 09:00 04/05/25 08:59 Potassium Chloride 100 ml @ 100 mls/hr AD PRN IV POTASSIUM PROTOCOL 03/27/25 11:00 03/27/25 10:48 DC Potassium Chloride 100 ml @ 100 mls/hr AD PRN IV POTASSIUM PROTOCOL 03/27/25 11:00 04/26/25 10:59 Potassium Chloride (K-Dur/Klor-Con 20meq) 20 meq AD PRN PO POTASSIUM PROTOCOL 03/27/25 11:00 03/27/25 10:48 DC Potassium Chloride (K-Dur/Klor-Con 20meq) 20 meq AD PRN PO POTASSIUM PROTOCOL 03/27/25 11:00 04/26/25 10:59 Potassium Chloride (KCl 10% Elixir 20meq/15ml) 20 meq AD PRN PO POTASSIUM PROTOCOL 03/27/25 11:00 03/27/25 10:48 DC Potassium Chloride (KCl 10% Elixir 20meq/15ml) 20 meq AD PRN PO POTASSIUM PROTOCOL 03/27/25 11:00 04/26/25 10:59 03/28/25 17:09 20 MEQ Sodium Chloride 1,000 ml @ 100 mls/hr Q10H IV 03/27/25 11:00 04/26/25 10:59 03/29/25 02:32 100 MLS/HR Sodium Chloride 154 meq/Dextrose 1,000 ml @ 75 mls/hr [id number] IV 03/30/25 11:00 04/29/25 10:59 Zolpidem Tartrate (AmbIEN) 5 mg HS PRN PO INSOMNIA 03/27/25 11:00 03/29/25 10:32 DC 03/29/25 01:53 5 MG DIAGNOSTICS / RADIOLOGY: [ ] ASSESSMENT: [ S/p fall POA Acute dehydration POA Generalized body weakness POA Electrolyte imbalance hypokalemia hypomagnesemia POA Multifactorial anemia POA Osteopenia per pelvis x-ray 03/27/2025 Acute congestive heart failure BNP 343 POA Uncontrolled hypertension POA Dementia POA Hyperlipidemia POA Uncontrolled diabetes mellitus type 2 with hypoglycemia POA Anxiety POA Multiple skin tears POA Severely malnourished POA History of stroke Recurrent hypoglycemia due to malnutrition POA PLAN: Acute dehydration, Generalized body weakness, Electrolyte imbalance hypokalemia hypomagnesemia Correct electrolytes as needed Follow up with the labs vitamin B12, folic acid Plan to order a banana bag NS at 100 mL/hour - currently on hold due to elevated BNP Acute congestive heart failure ,Uncontrolled hypertension Continue the home medications for blood pressure control as soon as they are reconciled Patient's BNP elevated to 2150 - currently asymptomatic and saturating at 99% on room air Echocardiogram revealed 50-55% EF with stage II diastolic dysfunction CT head negative Pelvis x-ray showed osteopenia and no significant abnormalities Cervical CT showed no abnormalities. GI prophylaxis with famotidine DVT prophylaxis with heparin Patient to be started on 10% dextrose water due to recurrent episodes of hypoglycemia. ATTESTATION BY PHYSICIAN I have seen and examined the patient. I reviewed the documentation, medical decision making, and treatment plan as noted by the resident provider above. I agree with the findings and plan of care. Markie Mccall MD, KEERTI K MD Mar 30, 2025 13:15
--- NOTE | 2025-03-30 15:48 | DS ---
Discharge Summary Hospital Course Summary: Patient is 79 years old male with a past medical history of diabetes, hypertension, dementia, hyperlipidemia, stroke, anxiety, multiple skin tears, who came to emergency department for generalized body weakness. Since patient has significant dementia he was unable to give me any history of present illness so as per EMS "Patient lives in an "assisted living [facility]". He lives on his own but people check on him daily. This morning he was found down on the ground with an abrasion to his L elbow. The patient reports feeling weak, but does not know what happened. Patient denies pain. Patient is not a reliable historian. He is alert to person only. No obvious focal deficits. Patient does appear unkempt, he has stool and feces on his clothes. Blind most recent vital signs temperature 97.5 pulse 86 respiration 20 blood pressure 154/86 patient is on room air satting 99%. Sodium 140 potassium 2.9 CO2 24 BUN 29 creatinine 1.0 GFR 78 magnesium 1.6 CK 201 troponin negative BNP 343 WBC 7.7 hemoglobin 10.7 hematocrit 33.5 platelets [address] negative. Chest x-ray negative. Head CT negative. Pelvic x- ray showed osteopenia. 2D echo is pending. As per RN who was able to talk to the patient's daughter she would like to try case management to send patient to detention. Case management was consulted. PT ordered Patient will be admitted under hospitalist care for further evaluation/recommendation 03/29/2025 - patient is seen in room 320. Patient is currently hemodynamically stable and labs show improvement on the electrolytes. Patient had an hypoglycemic episode this morning with serum glucose 60 and was transfused with the dextrose, on repeat glucose it does 149. Patient appears somnolent and is not responding appropriately to questioning. Home medications still pending. Plan to follow up with case management regarding placement of the patient in a detention. Serum toxicology has been ordered. BNP elevated to 2150. Patient will be monitored closely 03/30/2025 - patient seen in room 320. Patient currently asymptomatic and hemodynamically stable, all labs are normal. Patient has recurrent hypoglycemic events and started on 10% dextrose water. Patient is awake and alert today, still pending on serum toxicology. Case management informed about the patient being referred to care home. Viral markers has been ordered on the patient. We will monitor the patient closely. Patient has been approved at [facility] and is currently stable and cleared for discharge. 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 Both sagittal and coronal reconstructions were performed. CT Dose Index (CTDI): 12.85 mGy Dose Length Product (DLP): 282.6 total Findings: There is normal alignment of the vertebral bodies. There are no fractures. No facet hypertrophy. The prevertebral soft tissues are normal. IMPRESSION: NORMAL CERVICAL SPINE CT. This study was performed using dose reduction techniques to include automated exposure control and/or adjustment of the mA and/or kV according to patient size. DICTATED BY: NURY OLMSTEAD MD DATE: 03/27/25846 ELECTRONICALLY SIGNED BY: NURY OLMSTEAD MD DATE: 03/27/25856 PATIENT: GELA ZULETA MR#: [id number] : 1945 SEX: M AGE: 79 LOCATION: ED ORDER 3 STATUS: REG ER HOSPITAL REPORT#: [id number] SERVICE 1 REASON: fall ORDERING PHYSICIAN: KELLEY FAJARDO DO PROCEDURE: CXR1VW - CHEST 1VW Exam Type: CHEST 1VW Clinical Information: fall Comparison: None Findings: The lungs are clear of infiltrates. The heart is normal in size. The bony and soft tissue structures of the chest are unremarkable. Impression: Clear lungs. DICTATED BY: NURY OLMSTEAD MD DATE: 03/27/25854 ELECTRONICALLY SIGNED BY: NURY OLMSTEAD MD DATE: 03/27/25858 PATIENT: GELA ZULETA MR#: [id number] : 1945 SEX: M AGE: 79 LOCATION: EDH ORDER 3 STATUS: REG ER REPORT#: [id number] SERVICE 1 REASON: fall ORDERING PHYSICIAN: KELLEY FAJARDO DO PROCEDURE: HEAD WO - CT HEAD/BRAIN W/O CONTRAST Exam Type: CT HEAD/BRAIN W/O CONTRAST Clinical Information: fall Comparison: None CT Dose Index (CTDI): 57.33 mGy Dose Length Product (DLP): 956.79 total mGy-cm Findings: The examination shows atrophy. There is low attenuation throughout the periventricular white matter locations, consistent with chronic small vessel ischemic changes. No acute intra- or extra-axial fluid collections are seen. There is no evidence of acute or chronic hemorrhage. There is no mass effect or shift of midline structures. There are no areas to suggest acute infarct. The skull windows show no significant abnormalities. IMPRESSION: 1. ATROPHY AND CHRONIC SMALL VESSEL ISCHEMIC CHANGES. This study was performed using dose reduction techniques to include automated exposure control and/or adjustment of the mA and/or kV according to patient size. DICTATED BY: NURY OLMSTEAD MD DATE: 03/27/25845 ELECTRONICALLY SIGNED BY: NURY OMLSTEAD MD DATE: 03/27/25856 PATIENT: GELA ZULETA MR#: [id number] : 1945 SEX: M AGE: 79 LOCATION: ED ORDER 3 STATUS: REG ER [facility] REPORT#: [id number] SERVICE 1 REASON: fall ORDERING PHYSICIAN: KELLEY FAJARDO DO PROCEDURE: PELVIS - PELVIS 1-2VWS Exam Type: PELVIS 1-2VWS Clinical Information: fall Comparison: None Findings: There is osteopenia. The examination is otherwise unremarkable. No fractures or dislocations are seen. No radiopaque foreign bodies are noted. Soft tissues are preserved. IMPRESSION: Osteopenia. No acute pathology. DICTATED BY: NURY OLMSTEAD MD DATE: 03/27/25854 ELECTRONICALLY SIGNED BY: NURY OLMSTEAD MD DATE: 03/27/25856 PATIENT: GELA ZULETA MR#: [id number] : 1945 SEX: M AGE: 79 LOCATION: [facility] ORDER 1052 STATUS: ADM IN REPORT#: [id number] SERVICE 0838 REASON: chf ORDERING PHYSICIAN: DILCIA AGUILLON APRN PROCEDURE: ECHO CMP - ECHO 2-D COMPLETE APPROVED REPORT EXAM: Two-dimensional and M-mode echocardiogram with Doppler and color Doppler. Study Details: TDS INDICATION ICD: Congestive heart failure 2D Dimensions RVDd 4.0 cm LVEF(%) 26.9 (>50%) IVSd 0.5 (0.7-1.1cm) FS(%) 13 % LVDd 5.4 (3.8-5.6cm) LA (2D) 5.2 (1.6-4.0cm) PWd 0.7 (0.7-1.1cm) Ao Root(2D) 3.1 (2.0-3.7cm) IVSs 0.6 cm LVOT diam 2.2 (1.8-2.4cm) LVDs 4.7 (2.5-4.0cm) IVC diam 2.0 cm PWs 1.0 cm M-Mode Dimensions EPSS 1.8 cm LA (MM) 5.5 (1.6-4.0cm) Ao Root(MM) 3.4 (2.0-3.7cm) Aortic Valve AoV Vmax 2.4 m/s Ao Peak GR 23.0 mmHg LVOT Vmax 0.9 m/s AoV VTI 0.4 m Ao Mean GR 9.9 mmHg LVOT VTI 0.17 m [place] (VMAX) 1.30 cm2 [place] (VTI) 1.4 cm2 Mitral Valve MV E Vmax 108.6 cm/s DECEL Time 149 ms MV A Vmax 51.7 cm/s P 1/2 T 51 ms E/A ratio 2.1 MVA (PHT) 4.3 cm2 TDI E/E' Medial 20.7 E/E' Lateral 20.7 Medial E' Peak V 5.25 cm/s Lateral E' Peak V 5.25 cm/s Pulmonary Valve PV Vmax 0.8 m/s PI End Betina. Paco 162.2 cm/s PV Peak GR 2.3 mmHg Tricuspid Valve TR Vmax 2.7 m/s RAP (EST) 8 mmHg RVSP 37.8 mmHg TR Peak GR 29.8 mmHg Left Ventricle The left ventricle is normal size. There is mild left ventricular wall thinning of the septum. LVEF is 50-55%. 3D volume EF 53%. Grade II diastolic dysfunction. Right Ventricle The right ventricle is normal size. Right ventricular systolic function is mildly reduced. Atria The left atrium size is dilated. ARGELIA not recorded. The right atrium is mildly dilated. Aortic Valve Aortic valve is trileaflet and sclerotic. No aortic regurgitation is present. Mild aortic stenosis with Vpk 2.4 m/s and MG 9.9 mmHg. Mitral Valve The mitral valve cusps are mildly thickened. There is mild mitral valve regurgitation noted. There is no mitral valve stenosis. Tricuspid Valve The tricuspid valve is normal in structure. There is mild tricuspid valve regurgitation noted. Pulmonic Valve The pulmonary valve is normal in structure. There is mild pulmonic valvular regurgitation. Great Vessels The aortic root is normal in size. The IVC is normal in size and collapses <50% with inspiration. Pericardium There is no pericardial effusion. Other Information Quality : Technically difficult study due to body habitus Rhythm : NSR Conclusion LVEF is 50-55%. 3D volume EF 53%. Grade II diastolic dysfunction. The left atrium is at least moderately dialted; the ARGELIA is not recorded. Aortic valve is trileaflet and sclerotic. Mild aortic stenosis with Vpk 2.4 m/s and MG 9.9 mmHg. The mitral valve cusps are mildly thickened. There is mild mitral valve regurgitation noted. The right atrium is mildly dilated. Mild tricuspid valve regurgitation. DICTATED BY: TIN MADRIGAL DO DATE: 03/28/25 0959 ELECTRONICALLY SIGNED BY: TIN MADRIGAL DO DATE: 03/28/25 1321 Assessment/Plan: ASSESSMENT: [ S/p fall POA Acute dehydration POA Generalized body weakness POA Electrolyte imbalance hypokalemia hypomagnesemia POA Multifactorial anemia POA Osteopenia per pelvis x-ray 03/27/2025 Acute congestive heart failure BNP 343 POA Uncontrolled hypertension POA Dementia POA Hyperlipidemia POA Uncontrolled diabetes mellitus type 2 with hypoglycemia POA Anxiety POA Multiple skin tears POA Severely malnourished POA History of stroke Recurrent hypoglycemia due to malnutrition POA Discharge Instructions: Instructions to detention staff : Fall precautions in place Monitor for gait instability, confusion or orthostatic hypotension Ensure of assistive devices as needed Start high-calorie, high-protein diet Monitor weight and nutritional intake Consider referral to dietitian Monitor blood glucose closely Prevent and treat hypoglycemia Educate on glucose signs symptoms and treat accordingly Monitor blood pressure daily Administered medications with nursing supervision due to prior history of noncompliance Encourage patient education and support Patient has a history of homelessness, ensure ongoing social work follow up Home Medications: Reported Medications Cilostazol (Cilostazol) 50 Mg Tablet, 50 MG PO BID, TAB 03/29/25 Paroxetine HCl (Paroxetine HCl) 30 Mg Tablet, 1 TAB PO DAILY for 30 Days, #30 TAB 0 Refills 03/29/25 Pravastatin Sodium (Pravastatin Sodium) 40 Mg Tablet, 1 TAB PO HS for 30 Days, #30 TAB 0 Refills 03/29/25 Donepezil HCl (Donepezil HCl) 5 Mg Tab.rapdis, 5 MG PO HS, TAB 03/29/25 Buspirone HCl (Buspar) 15 Mg Tab, 10 TAB PO TID for 30 Days, #60 TAB 0 Refills 03/29/25 Olmesartan Medoxomil (Olmesartan Medoxomil) 20 Mg Tablet, 2.5 TAB PO DAILY for 30 Days, #30 TAB 0 Refills 03/29/25 Continued Medications: Buspirone HCl (Buspar) 15 Mg Tab 10 TAB PO TID for 30 Days, #60 TAB 0 Refills Cilostazol (Cilostazol) 50 Mg Tablet 50 MG PO BID, TAB Donepezil HCl (Donepezil HCl) 5 Mg Tab.rapdis 5 MG PO HS, TAB Olmesartan Medoxomil (Olmesartan Medoxomil) 20 Mg Tablet 2.5 TAB PO DAILY for 30 Days, #30 TAB 0 Refills Paroxetine HCl (Paroxetine HCl) 30 Mg Tablet 1 TAB PO DAILY for 30 Days, #30 TAB 0 Refills Pravastatin Sodium (Pravastatin Sodium) 40 Mg Tablet 1 TAB PO HS for 30 Days, #30 TAB 0 Refills Time spent arranging discharge: 1-30 minutes ATTESTATION BY PHYSICIAN I have seen and examined the patient. I reviewed the documentation, medical dec ision making, and treatment plan as noted by the resident provider above. I agree with the findings and plan of care. Markie Mccall MD, KEERTI K MD Mar 30, 2025 15:48
[2025-03-30 16:00] VITALS: BP 141/76; PULSE 81; RESP 16; TEMP 97.7
[2025-03-30 19:18] LABS: HEPATITIS A IGM ANTIBODY Non-Reactive (Nonreactive); HEPATITIS B CORE IGM ANTIBODY Non-Reactive (Negative); HEPATITIS B SURFACE ANTIGEN Non-Reactive (Nonreactive)
[2025-03-30 19:20] LABS: HEPATITIS C ANTIBODY Reactive (Nonreactive)
[2025-03-30] MEDS ORDERED: doNEPEZil HCL 5 MG TAB PO SCH (21:00)
[2025-03-30] MEDS ORDERED: atorVAStatin 10 MG TABLET PO SCH (21:00)
[2025-03-31 20:10] LABS: AMPHETAMINES SERUM Negative ng/mL (Cutoff:50); COCAINE+METABOLITES SERUM Negative ng/mL (Cutoff:25)
== END 2025-03-30 18:10 | DRG 640 ==
LOC: EDH 08:08 → EDHIP 08:09 → 3CH 11:40
PROVIDERS: ADMIT Internal Medicine; ATTEND Internal Medicine
DX: E86.0 Dehydration (principal); E43 Unspecified severe protein-calorie malnutrition; F03.94 Unspecified dementia, unspecified severity, with anxiety; Z68.1 Body mass index [BMI] 19.9 or less, adult; S50.312A Abrasion of left elbow, initial encounter; D64.9 Anemia, unspecified; E11.649 Type 2 diabetes mellitus with hypoglycemia without coma; E83.42 Hypomagnesemia; E87.6 Hypokalemia; I11.0 Hypertensive heart disease with heart failure; Z20.822 Contact with and (suspected) exposure to COVID-19; W18.39XA Other fall on same level, initial encounter; M85.88 Other specified disorders of bone density and structure, other site; E78.00 Pure hypercholesterolemia, unspecified; I37.1 Nonrheumatic pulmonary valve insufficiency; I50.9 Heart failure, unspecified; Z86.73 Personal history of transient ischemic attack (TIA), and cerebral infarction without residual deficits; Y93.89 Activity, other specified; Y92.89 Other specified places as the place of occurrence of the external cause; Y99.8 Other external cause status; Z79.899 Other long term (current) drug therapy
CPT/HCPCS: 36415; 70450; 71045; 72125; 72170; 76376; 80048; 80053; 80074; 80076; 80305; 81001; 82010; 82140; 82150; 82550; 82607; 82746; 82948; 83036; 83605; 83690; 83735; 83880; 84145; 84439; 84443; 84481; 84484; 85025; 85610; 85651; 85730; 86140; 86701; 87040; 87086; 87390; 87426; 87522; 87804; 93005; 93306; 93356; 99285; G0378; J0360; J1200; J1644; J2405; J3411; J3475; J3480; J3490; J7030; J7070; J7120; J7131